=== PATIENT | male | born 1950 | race Caucasian/White ===

== ENCOUNTER 2018-07-18 12:04 | Inpatient (IN) | payer MEDICARE ==
[~2018-07-18] VITALS: Ht 188 cm; Wt 53.0 kg
--- NOTE | 2018-07-18 12:20 | NUR ---
FSBS with [facility] = 517. Patient reports polyuria.
--- NOTE | 2018-07-18 12:20 | NUR ---
BIB [facility]. C/O SOB, N/V, and generalized weakness. Patient tachycardic (afib RVR) and tachypneic. BP stable. A&Ox4, but slow to answer questions. Hx type 2 DM and has not had insulin for 6 months. Drinks 1 pint per day, but has not had a drink for 3 days. EKG done. Second IV started and fluids hung. Placed on NIBP, pulse ox and phototypesetting equipment monitor. Will contiue to monitor.
[2018-07-18] MEDS ORDERED: SODIUM CHLORIDE 0.9% 1,000ML IVBOLUS ONE ×3 (12:30→13:00)
[2018-07-18 12:47] LABS: PH, VENOUS 7.056 pH (7.320-7.420)
[2018-07-18 12:53] LABS: ALANINE AMINOTRANSFERASE 18 U/L (12-78); ALBUMIN 3.7 g/dL (3.4-5.0); ANION GAP 32 mmol/L (5-15); CALCIUM 9.3 mg/dL (8.5-10.1); CHLORIDE 90 mmol/L (98-107); CREATININE 1.82 mg/dL (0.7-1.3)
[2018-07-18 12:55] LABS: ALKALINE PHOSPHATASE 119 U/L (45-117); BILIRUBIN,TOTAL 0.7 mg/dL (0.2-1.0); TOTAL PROTEIN 8.4 g/dL (6.4-8.2)
[2018-07-18 12:56] LABS: MEAN CORPUSCULAR HGB CONC 31.5 g/dL (33.2-36.2); MEAN CORPUSCULAR VOLUME 95.2 fL (81-97); MEAN PLATELET VOLUME 8.4 fL (7.4-10.4); PLATELET COUNT 259 x10^3/uL (130-400); RED BLOOD COUNT 6.19 x10^6/uL (4.38-5.82); RED CELL DISTRIBUTION WIDTH 14.2 % (9.4-14.8)
--- NOTE | 2018-07-18 12:57 | NUR ---
Patient remains in Afib with RVR and is becoming hypotensive despite fluid resuscitation. Placed on defib pads and zoll for potential cardioversion.
[2018-07-18] MEDS ORDERED: DILTIAZEM 5 MG/ML, 5ML ONE (13:04)
--- NOTE | 2018-07-18 13:09 | NUR ---
HR improved after 10mg IV cardizem. BP stable.
[2018-07-18 13:19] LABS: MD YES
[2018-07-18 13:22] LABS: ACETONE, SERUM Large (80mg/dL) mg/dL (Negative)
[2018-07-18 13:26] LABS: BAND#(MANUAL) 0.72 x10^3/uL; BANDS%(MANUAL) 10 % (0-7); LYMPH#(MANUAL) 0.36 x10^3/uL (1-3.4); LYMPHS% (MANUAL) 5 % (22-44); MONOS#(MANUAL) 0.65 x10^3/uL (0.3-2.7); MONOS% (MANUAL) 9 % (2-9); SEG#(MANUAL) 5.47 x10^3/uL (1.8-6.8); SEGS% (MANUAL) 76 % (42-75)
--- NOTE | 2018-07-18 13:26 | NUR ---
RECEIVED REPORT FROM BEENA OCONNELL
[2018-07-18 13:27] LABS: <PLATELET ESTIMATE> ADEQUATE; <PLT MORPHOLOGY> NORMAL PLT MORPH
[2018-07-18] MEDS ORDERED: DILTIAZEM 5 MG/ML, 5ML IVPush ONE (13:30)
[2018-07-18] MEDS ORDERED: DILTIAZEM 125 MG in SODIUM CHLORIDE 0.9% 100 ML IV SCH (13:40)
[2018-07-18] MEDS ORDERED: REGULAR INSULIN 62.5 UNITS in SODIUM CHLORIDE 0.9% 249.375 ML IV PRN ×2 (13:44→15:00)
--- NOTE | 2018-07-18 14:09 | NUR ---
2nd ekg done. cardizem gtt infusing.
[2018-07-18] MEDS ORDERED: ACETAMINOPHEN 325 MG TABLET PO PRN (14:30)
[2018-07-18] MEDS ORDERED: POLYETHYLENE GLYCOL 17 GM PACKET PO PRN (14:30)
[2018-07-18] MEDS ORDERED: ENALAPRILAT 1.25 MG/ML, 2ML IVPush PRN (14:30)
[2018-07-18] MEDS ORDERED: DILTIAZEM 125 MG in SODIUM CHLORIDE 0.9% 100 ML IV PRN (14:30)
[2018-07-18] MEDS ORDERED: LABETALOL 5MG/ML, 20ML IVPush PRN (14:30)
[2018-07-18] MEDS ORDERED: PROMETHAZINE 25 MG/ML, 1ML IM PRN (14:30)
[2018-07-18] MEDS ORDERED: OXYcodone IR 5MG TABLET PO PRN (14:30)
[2018-07-18] MEDS ORDERED: ONDANSETRON 2MG/ML, 2ML IVPush PRN (14:30)
--- NOTE | 2018-07-18 14:30 | NUR ---
pt with n/v and started vomitting. dr. mercado at bedside and reported heart rate up to 150. pt back down to 108 after about 7 minutes. pt currently on cardizem gtt. pt with st depression on monitor. 3rd ekg ordered per dr. mercado.
--- NOTE | 2018-07-18 14:52 | NUR ---
BLOOD GLUCOSE 325. DR. DEVI AWARE AND INSULIN STARTED AT 2 UNITS/HR 8ML/HR
--- NOTE | 2018-07-18 14:54 | NUR ---
LAB AT BEDSIDE FOR TROPONIN DRAW. RECEIVED BED AND WILL CALL REPORT
[2018-07-18] MEDS ORDERED: MAGNESIUM SULFATE PMX 2GM/50ML 50 ML IV ONE (15:00)
--- NOTE | 2018-07-18 15:10 | NUR ---
report given to mukesh genao [facility]. pt ready for transport.
[2018-07-18 15:11] LABS: ANION GAP 26 mmol/L (5-15); CALCIUM 8.1 mg/dL (8.5-10.1); CHLORIDE 103 mmol/L (98-107); CREATININE 1.39 mg/dL (0.7-1.3)
[2018-07-18 15:15] LABS: TROPONIN I < 0.015 ng/mL (0.000-0.045)
[2018-07-18] MEDS: SODIUM CHLORIDE 0.9% 1,000 ML IV SCH ×2 (16:11→20:51)
[2018-07-18 16:21] LABS: ESTIMATED AVERAGE GLUCOSE 413 mg/dL (0-126); HEMOGLOBIN A1C > 16.0 % (4.2-6.3)
[2018-07-18] MEDS: ENOXAPARIN 80 MG/0.8 ML SQ SCH (17:20)
[2018-07-18 18:21] LABS: MICROSCOPIC AUTO
[2018-07-18 18:22] LABS: CULTURE INDICATED? NO
[2018-07-18 20:52] LABS: ANION GAP 20 mmol/L (5-15); CALCIUM 8.4 mg/dL (8.5-10.1); CHLORIDE 108 mmol/L (98-107); CREATININE 1.21 mg/dL (0.7-1.3); TROPONIN I < 0.015 ng/mL (0.000-0.045)
[2018-07-18] MEDS: D5%-0.45NACL+KCL 20MEQ 1,000 ML IV SCH (20:57)
[2018-07-18] MEDS ORDERED: LACTULOSE 10 GM/15 ML UDC PO SCH (21:00)
[2018-07-18 23:48] LABS: ANION GAP 15 mmol/L (5-15); CALCIUM 8.1 mg/dL (8.5-10.1); CHLORIDE 111 mmol/L (98-107); CREATININE 1.07 mg/dL (0.7-1.3)
[2018-07-19 03:12] LABS: BASOPHILS # (AUTO) 0.03 x10^3/uL (0-0.1); BASOPHILS % (AUTO) 1 % (0-1); EOSINOPHILS # (AUTO) 0.03 x10^3/uL (0-0.4); EOSINOPHILS % (AUTO) 0 % (1-7); LYMPHOCYTES # (AUTO) 0.76 x10^3/uL (1-3.4); LYMPHOCYTES % (AUTO) 12 % (22-44); MD NO; MEAN CORPUSCULAR HEMOGLOBIN 30.4 pg (27.5-34.5); MEAN CORPUSCULAR HGB CONC 32.1 g/dL (33.2-36.2); MEAN CORPUSCULAR VOLUME 94.7 fL (81-97); MONOCYTES # (AUTO) 0.87 x10^3/uL (0.2-0.8); MONOCYTES % (AUTO) 14 % (2-9); NEUTROPHILS # (AUTO) 4.47 x10^3/uL (1.8-6.8); NEUTROPHILS % (AUTO) 73 % (42-75); PLATELET COUNT 224 x10^3/uL (130-400); RED CELL DISTRIBUTION WIDTH 13.9 % (9.4-14.8)
[2018-07-19 03:22] LABS: ANION GAP 10 mmol/L (5-15); CALCIUM 8.1 mg/dL (8.5-10.1); CHLORIDE 112 mmol/L (98-107)
[2018-07-19 03:23] LABS: CREATININE 1.05 mg/dL (0.7-1.3)
[2018-07-19] MEDS: SODIUM CHLORIDE 0.9% 1,000 ML IV SCH ×3 (03:31→21:40)
[2018-07-19] MEDS: D5%-0.45NACL+KCL 20MEQ 1,000 ML IV SCH (04:02)
[2018-07-19] MEDS: ENOXAPARIN 80 MG/0.8 ML SQ SCH (04:05)
[2018-07-19 04:24] VITALS: BP 112/77
[2018-07-19 07:02] LABS: ALBUMIN 2.7 g/dL (3.4-5.0); ANION GAP 9 mmol/L (5-15); CALCIUM 8.2 mg/dL (8.5-10.1); CHLORIDE 112 mmol/L (98-107)
[2018-07-19 07:11] LABS: ALANINE AMINOTRANSFERASE 13 U/L (12-78); ALKALINE PHOSPHATASE 81 U/L (45-117); BILIRUBIN,TOTAL 0.3 mg/dL (0.2-1.0); CHOL/HDL RATIO 5.2; CHOLESTEROL, TOTAL 194 mg/dL (140-239); CREATININE 1.03 mg/dL (0.7-1.3); HDL CHOL % 19 % (26-37); HDL CHOLESTEROL (DIRECT) 37 mg/dL (40-60); LDL CHOLESTEROL,CALCULATED 138 mg/dL (54-169); LDL/HDL RATIO 3.7 (0.5-3.0); THYROID STIMULATING HORMONE 0.381 mIU/L (0.358-3.740); TRIGLYCERIDES 95 mg/dL (50-200); VLDL CHOLESTEROL 19 mg/dL (0-25)
[2018-07-19] MEDS: ENOXAPARIN 40 MG/0.4 ML SQ SCH (07:11)
[2018-07-19] MEDS ORDERED: PANTOPRAZOLE 40 MG IV IVPush SCH (07:30)
[2018-07-19] MEDS ORDERED: POTASSIUM CHLORIDE 20 MEQ TAB.ER.PRT PO ONE (09:30)
[2018-07-19] MEDS ORDERED: SODIUM PHOSPHATE 20 MMOL in SODIUM CHLORIDE 0.9% 500 ML IV ONE (09:30)
[2018-07-19] MEDS: INSULIN GLARGINE 100 UNITS/ML, PEN SQ-INSULIN SCH ×2 (09:42→21:40)
[2018-07-19] MEDS: THIAMINE 200 MG in SODIUM CHLORIDE 0.9% 50 ML IV SCH (09:56)
[2018-07-19] MEDS ORDERED: INSULIN LISPRO 100 UNITS/ML, PEN SQ-INSULIN SCH (11:00)
[2018-07-19] MEDS: INSULIN LISPRO 100 UNITS/ML, PEN SQ-INSULIN SCH ×3 (12:17→21:39)
[2018-07-19 14:00] VITALS: BP 116/81
[2018-07-19 19:36] VITALS: BP 100/70
[2018-07-20 02:36] VITALS: BP 113/80
[2018-07-20 04:18] LABS: ANION GAP 6 mmol/L (5-15); CHLORIDE 108 mmol/L (98-107); CREATININE 0.53 mg/dL (0.7-1.3)
[2018-07-20] MEDS ORDERED: SODIUM PHOSPHATE 20 MMOL in SODIUM CHLORIDE 0.9% 500 ML IV ONE (07:30)
[2018-07-20] MEDS: INSULIN LISPRO 100 UNITS/ML, PEN SQ-INSULIN SCH ×4 (08:08→22:10)
[2018-07-20] MEDS: POTASSIUM CHLORIDE 20 MEQ TAB.ER.PRT PO SCH ×2 (08:32→15:25)
[2018-07-20] MEDS: INSULIN GLARGINE 100 UNITS/ML, PEN SQ-INSULIN SCH ×2 (08:33→22:09)
[2018-07-20 08:39] VITALS: BP 131/88
[2018-07-20] MEDS: THIAMINE 200 MG in SODIUM CHLORIDE 0.9% 50 ML IV SCH (09:08)
[2018-07-20] MEDS: ENOXAPARIN 40 MG/0.4 ML SQ SCH (11:37)
[2018-07-20 14:00] VITALS: BP 110/73
[2018-07-20] MEDS: SODIUM CHLORIDE 0.9% 1,000 ML IV SCH (15:16)
[2018-07-20 19:29] VITALS: BP 143/88
[2018-07-21] MEDS: SODIUM CHLORIDE 0.9% 1,000 ML IV SCH (00:54)
[2018-07-21 02:34] VITALS: BP 124/77
[2018-07-21 06:00] LABS: ANION GAP 5 mmol/L (5-15); CALCIUM 8.2 mg/dL (8.5-10.1); CHLORIDE 101 mmol/L (98-107); CREATININE 0.49 mg/dL (0.7-1.3)
[2018-07-21] MEDS ORDERED: SODIUM PHOSPHATE 20 MMOL in SODIUM CHLORIDE 0.9% 500 ML IV ONE (06:30)
[2018-07-21] MEDS: INSULIN LISPRO 100 UNITS/ML, PEN SQ-INSULIN SCH ×4 (07:00→21:44)
[2018-07-21 08:00] VITALS: BP 119/70
[2018-07-21] MEDS: ENOXAPARIN 40 MG/0.4 ML SQ SCH (09:00)
[2018-07-21] MEDS: POTASSIUM CHLORIDE 20 MEQ TAB.ER.PRT PO SCH (09:00)
[2018-07-21] MEDS: INSULIN GLARGINE 100 UNITS/ML, PEN SQ-INSULIN SCH ×2 (09:00→21:43)
[2018-07-21 12:58] VITALS: BP 123/74
[2018-07-21 19:53] VITALS: BP 163/77
[2018-07-22 01:52] VITALS: BP 137/79
[2018-07-22 05:25] LABS: CHLORIDE 100 mmol/L (98-107)
[2018-07-22 05:37] LABS: ANION GAP 6 mmol/L (5-15); CALCIUM 8.5 mg/dL (8.5-10.1)
[2018-07-22 07:06] VITALS: BP 128/74
[2018-07-22] MEDS: INSULIN LISPRO 100 UNITS/ML, PEN SQ-INSULIN SCH ×4 (07:29→20:55)
[2018-07-22] MEDS: ENOXAPARIN 40 MG/0.4 ML SQ SCH (08:02)
[2018-07-22] MEDS: MULTIVITAMIN 1 TABLET PO SCH (08:02)
[2018-07-22] MEDS: INSULIN GLARGINE 100 UNITS/ML, PEN SQ-INSULIN SCH ×2 (08:03→20:55)
[2018-07-22] MEDS: POTASSIUM CHLORIDE 20 MEQ TAB.ER.PRT PO SCH ×2 (08:03→18:03)
[2018-07-22] MEDS ORDERED: SODIUM PHOSPHATE 20 MMOL in SODIUM CHLORIDE 0.9% 500 ML IV ONE (09:00)
[2018-07-22 12:17] VITALS: BP 119/69
[2018-07-22 20:10] VITALS: BP 93/58
[2018-07-23 01:28] VITALS: BP 128/82
[2018-07-23] MEDS: INSULIN LISPRO 100 UNITS/ML, PEN SQ-INSULIN SCH ×4 (07:00→20:09)
[2018-07-23 08:20] VITALS: BP 135/86
[2018-07-23] MEDS: ENOXAPARIN 40 MG/0.4 ML SQ SCH (08:33)
[2018-07-23] MEDS: MULTIVITAMIN 1 TABLET PO SCH (08:33)
[2018-07-23] MEDS: INSULIN GLARGINE 100 UNITS/ML, PEN SQ-INSULIN SCH ×2 (09:46→20:09)
[2018-07-23 15:06] VITALS: BP 91/62
[2018-07-23 19:35] VITALS: BP 87/63
[2018-07-23 22:19] VITALS: BP 101/68
[2018-07-24 00:49] VITALS: BP 115/73
[2018-07-24 06:33] VITALS: BP 124/84
[2018-07-24] MEDS: INSULIN LISPRO 100 UNITS/ML, PEN SQ-INSULIN SCH ×4 (07:00→20:19)
[2018-07-24 09:15] LABS: BASOPHILS # (AUTO) 0.03 x10^3/uL (0-0.1); BASOPHILS % (AUTO) 1 % (0-1); EOSINOPHILS # (AUTO) 0.05 x10^3/uL (0-0.4); EOSINOPHILS % (AUTO) 1 % (1-7); LYMPHOCYTES # (AUTO) 1.36 x10^3/uL (1-3.4); LYMPHOCYTES % (AUTO) 26 % (22-44); MD NO; MEAN CORPUSCULAR HEMOGLOBIN 30.6 pg (27.5-34.5); MEAN CORPUSCULAR HGB CONC 32.8 g/dL (33.2-36.2); MEAN CORPUSCULAR VOLUME 93.5 fL (81-97); MEAN PLATELET VOLUME 7.2 fL (7.4-10.4); MONOCYTES % (AUTO) 15 % (2-9); NEUTROPHILS # (AUTO) 3.09 x10^3/uL (1.8-6.8); NEUTROPHILS % (AUTO) 58 % (42-75); PLATELET COUNT 371 x10^3/uL (130-400); RED BLOOD COUNT 5.03 x10^6/uL (4.38-5.82); RED CELL DISTRIBUTION WIDTH 14.4 % (9.4-14.8)
[2018-07-24 09:18] LABS: ANION GAP 3 mmol/L (5-15); CALCIUM 8.9 mg/dL (8.5-10.1); CHLORIDE 102 mmol/L (98-107); CREATININE 0.52 mg/dL (0.7-1.3)
[2018-07-24 09:19] LABS: ALANINE AMINOTRANSFERASE 12 U/L (12-78)
[2018-07-24 09:21] LABS: ALKALINE PHOSPHATASE 69 U/L (45-117); BILIRUBIN,TOTAL 0.3 mg/dL (0.2-1.0); TOTAL PROTEIN 5.7 g/dL (6.4-8.2)
[2018-07-24] MEDS: MULTIVITAMIN 1 TABLET PO SCH (09:34)
[2018-07-24] MEDS: ENOXAPARIN 40 MG/0.4 ML SQ SCH (09:34)
[2018-07-24] MEDS: INSULIN GLARGINE 100 UNITS/ML, PEN SQ-INSULIN SCH ×2 (09:34→20:18)
[2018-07-24 12:19] VITALS: BP 146/92
[2018-07-24 13:59] VITALS: BP 101/64
[2018-07-24 19:49] VITALS: BP 120/72
[2018-07-24] MEDS: THIAMINE 100MG TABLET PO SCH (20:18)
[2018-07-25 02:48] VITALS: BP 120/75
[2018-07-25 06:59] VITALS: BP 116/75
[2018-07-25] MEDS: MULTIVITAMIN 1 TABLET PO SCH (07:47)
[2018-07-25] MEDS: INSULIN LISPRO 100 UNITS/ML, PEN SQ-INSULIN SCH ×4 (07:47→20:11)
[2018-07-25] MEDS: FOLIC ACID 1 MG TABLET PO SCH (07:47)
[2018-07-25] MEDS: THIAMINE 100MG TABLET PO SCH ×2 (07:47→20:10)
[2018-07-25] MEDS: ENOXAPARIN 40 MG/0.4 ML SQ SCH (07:48)
[2018-07-25] MEDS: INSULIN GLARGINE 100 UNITS/ML, PEN SQ-INSULIN SCH ×2 (07:50→20:10)
[2018-07-25 13:26] VITALS: BP 100/65
[2018-07-25 20:00] VITALS: BP 115/71
[2018-07-26 01:06] VITALS: BP 133/73
[2018-07-26 06:25] VITALS: BP 111/67
[2018-07-26 06:27] VITALS: BP 140/83
[2018-07-26] MEDS: INSULIN LISPRO 100 UNITS/ML, PEN SQ-INSULIN SCH ×4 (07:00→19:59)
[2018-07-26] MEDS: MULTIVITAMIN 1 TABLET PO SCH (08:18)
[2018-07-26] MEDS: THIAMINE 100MG TABLET PO SCH ×2 (08:18→19:58)
[2018-07-26] MEDS: FOLIC ACID 1 MG TABLET PO SCH (08:18)
[2018-07-26] MEDS: ENOXAPARIN 40 MG/0.4 ML SQ SCH (08:18)
[2018-07-26] MEDS: INSULIN GLARGINE 100 UNITS/ML, PEN SQ-INSULIN SCH ×2 (08:21→19:58)
[2018-07-26 12:30] VITALS: BP 102/62
[2018-07-26 21:02] VITALS: BP 112/63
[2018-07-27 01:41] VITALS: BP 127/76
[2018-07-27 05:55] LABS: MEAN CORPUSCULAR HEMOGLOBIN 30.9 pg (27.5-34.5); MEAN CORPUSCULAR HGB CONC 32.6 g/dL (33.2-36.2); MEAN CORPUSCULAR VOLUME 94.7 fL (81-97); MEAN PLATELET VOLUME 7.1 fL (7.4-10.4); PLATELET COUNT 470 x10^3/uL (130-400); RED BLOOD COUNT 4.49 x10^6/uL (4.38-5.82); RED CELL DISTRIBUTION WIDTH 13.9 % (9.4-14.8)
[2018-07-27 06:02] LABS: ANION GAP 3 mmol/L (5-15); CALCIUM 8.8 mg/dL (8.5-10.1); CHLORIDE 100 mmol/L (98-107); CREATININE 0.58 mg/dL (0.7-1.3)
[2018-07-27 06:16] LABS: BASOPHILS # (AUTO) 0.04 x10^3/uL (0-0.1); BASOPHILS % (AUTO) 1 % (0-1); EOSINOPHILS # (AUTO) 0.04 x10^3/uL (0-0.4); EOSINOPHILS % (AUTO) 1 % (1-7); LYMPHOCYTES # (AUTO) 1.26 x10^3/uL (1-3.4); LYMPHOCYTES % (AUTO) 17 % (22-44); MD SCAN; MONOCYTES # (AUTO) 1.46 x10^3/uL (0.2-0.8); MONOCYTES % (AUTO) 19 % (2-9); NEUTROPHILS # (AUTO) 4.79 x10^3/uL (1.8-6.8); NEUTROPHILS % (AUTO) 63 % (42-75)
[2018-07-27 07:55] VITALS: BP 121/78
[2018-07-27] MEDS: INSULIN LISPRO 100 UNITS/ML, PEN SQ-INSULIN SCH ×2 (08:05→12:42)
[2018-07-27] MEDS: MULTIVITAMIN 1 TABLET PO SCH (09:31)
[2018-07-27] MEDS: THIAMINE 100MG TABLET PO SCH (09:31)
[2018-07-27] MEDS: ENOXAPARIN 40 MG/0.4 ML SQ SCH (09:31)
[2018-07-27] MEDS: FOLIC ACID 1 MG TABLET PO SCH (09:31)
[2018-07-27] MEDS: INSULIN GLARGINE 100 UNITS/ML, PEN SQ-INSULIN SCH (09:32)
[2018-07-27 12:26] VITALS: BP 102/64
[2018-07-27] MEDS ORDERED: INSU100I13 SQ-INSULIN ×2 (12:58)
[2018-07-27] MEDS ORDERED: FOLI-17 PO (12:58)
[2018-07-27] MEDS ORDERED: MULT1TAB60 PO (12:58)
[2018-07-27] MEDS ORDERED: THIA100T67 PO (12:58)
== END 2018-07-27 15:27 | disposition home or self-care (01) | DRG 637 ==
LOC: ED 14:24 → CCU 15:54 → ICU 07-19 14:19 → 4EST 07-20 16:00 → DCLOUNGE 07-27 15:25
PROVIDERS: ADMIT Internal Medicine; ATTEND Internal Medicine
DX: E11.10 Type 2 diabetes mellitus with ketoacidosis without coma (principal); N17.0 Acute kidney failure with tubular necrosis; D68.69 Other thrombophilia; E46 Unspecified protein-calorie malnutrition; Z68.1 Body mass index [BMI] 19.9 or less, adult; G93.40 Encephalopathy, unspecified; E86.0 Dehydration; F10.20 Alcohol dependence, uncomplicated; F17.210 Nicotine dependence, cigarettes, uncomplicated; G31.84 Mild cognitive impairment of uncertain or unknown etiology; H91.90 Unspecified hearing loss, unspecified ear; I45.81 Long QT syndrome; I48.2 Chronic atrial fibrillation; Z59.0 Homelessness; Z79.4 Long term (current) use of insulin; Z91.14 Patient's other noncompliance with medication regimen; Z91.19 Patient's noncompliance with other medical treatment and regimen
CPT/HCPCS: 36415; 71045; 80048; 80053; 80061; 81001; 82010; 82803; 82947; 82962; 83036; 83605; 83735; 84100; 84145; 84443; 84484; 85025; 87081; 93005; 93306; 96361; 96365; 96368; G0378; J1650; J1815; J3411; 92523-GN; G0515-GN; J3475; J3480; J7030; J7040; J7050

== ENCOUNTER 2018-08-06 09:29 | Inpatient (IN) | payer MEDICARE ==
[~2018-08-06] VITALS: Ht 177.8 cm; Wt 74.5 kg
[~2018-08-06 09:29] MED LIST: FOLI-17 PO; INSU100I13 SQ-INSULIN; MULT1TAB60 PO; THIA100T67 PO
--- NOTE | 2018-08-06 09:41 | NUR ---
Pt brought in by EMS with c/o hyperglycemia and "fatigue". FS in the field was 418. Pt very EKWOK, but AAO X 4. Pt tachycardic and and tachypnic. Pt attached to monitor. MD to bedside, new orders received and implemented.
[2018-08-06] MEDS ORDERED: SODIUM CHLORIDE 0.9% 1,000ML IVBOLUS ONE ×3 (10:00→23:30)
--- NOTE | 2018-08-06 10:00 | NUR ---
NS FROM EMS FINISHED, 2ND L NS SCANNED AND HUNG.
[2018-08-06 10:13] LABS: PH, VENOUS 7.312 pH (7.320-7.420)
[2018-08-06 10:15] LABS: FIO2 RA %
[2018-08-06 10:20] LABS: MEAN CORPUSCULAR HEMOGLOBIN 29.9 pg (27.5-34.5); MEAN CORPUSCULAR HGB CONC 32.4 g/dL (33.2-36.2); MEAN CORPUSCULAR VOLUME 92.4 fL (81-97); MEAN PLATELET VOLUME 7.4 fL (7.4-10.4); PLATELET COUNT 326 x10^3/uL (130-400); RED BLOOD COUNT 4.43 x10^6/uL (4.38-5.82); RED CELL DISTRIBUTION WIDTH 14.3 % (9.4-14.8)
[2018-08-06 10:27] LABS: ALBUMIN 2.2 g/dL (3.4-5.0); ANION GAP 16 mmol/L (5-15); CALCIUM 8.4 mg/dL (8.5-10.1); CHLORIDE 93 mmol/L (98-107)
[2018-08-06 10:30] LABS: ALANINE AMINOTRANSFERASE 14 U/L (12-78); ALKALINE PHOSPHATASE 70 U/L (45-117); BILIRUBIN,TOTAL 0.7 mg/dL (0.2-1.0); CREATININE 0.94 mg/dL (0.7-1.3); TOTAL PROTEIN 5.9 g/dL (6.4-8.2)
[2018-08-06] MEDS ORDERED: SODIUM CHLORIDE 0.9% 1,000 ML IV ONE (10:53)
[2018-08-06 10:57] LABS: MD YES
[2018-08-06 10:59] LABS: BAND#(MANUAL) 2.47 x10^3/uL; BANDS%(MANUAL) 18 % (0-7); LYMPH#(MANUAL) 0.27 x10^3/uL (1-3.4); LYMPHS% (MANUAL) 2 % (22-44); MONOS#(MANUAL) 0.96 x10^3/uL (0.3-2.7); MONOS% (MANUAL) 7 % (2-9); MYELOCYTES# (MANUAL) 0.14 x10^3/uL (0-0); MYELOCYTES% (MANUAL) 1 % (0-0); SEG#(MANUAL) 9.86 x10^3/uL (1.8-6.8); SEGS% (MANUAL) 72 % (42-75)
[2018-08-06 11:00] LABS: <PLATELET ESTIMATE> ADEQUATE; <PLT MORPHOLOGY> NORMAL PLT MORPH; <RBC MORPHOLOGY> NORMAL
[2018-08-06] MEDS ORDERED: INSULIN REGULAR 100 UNITS/ML, 3ML VIAL SQ-INSULIN ONE (11:00)
[2018-08-06 11:02] LABS: MICROSCOPIC AUTO
[2018-08-06 11:03] LABS: CULTURE INDICATED? NO
[2018-08-06 11:03] LABS: ACETONE, SERUM Large (80mg/dL) mg/dL (Negative)
[2018-08-06] MEDS ORDERED: INSULIN LISPRO 100 UNITS/ML, PEN ONE (11:04)
[2018-08-06 11:06] LABS: SODIUM,URINE RANDOM 37 mmol/L
--- NOTE | 2018-08-06 11:08 | NUR ---
PT GIVEN 10 UNITS SQ INSULIN PER MD ORDER, SEE MAR. PT RESTING COMFORTABLY ON GURNEY, ALL NEEDS ADDRESSED AND FALL PRECAUTIONS IN PLACE.
--- NOTE | 2018-08-06 11:38 | NUR ---
FS RECHECK 306.
[2018-08-06 11:54] LABS: OSMOLALITY,URINE 642 mOsm/kg (500-850)
[2018-08-06] MEDS ORDERED: PIPERACILLIN/TAZO/PMX 3.375GM 50 ML IV ONE (12:00)
--- NOTE | 2018-08-06 12:08 | NUR ---
DISCUSSED PT CONDITION WITH MD. BLOOD CULTURES X 2 DRAWN, LACTIC ACID NEGATIVE, VSS EXCEPT HR, FOLLOW UP EKG ORDERED. LAB AT BEDSIDE TO DRAW BLOOD CULTURES. US AT BEDSIDE FOR EXAM. ANX TO BE ADMINISTERED WHEN BLOOD CULTURE SETS X 2 COMPLETED.
--- NOTE | 2018-08-06 12:18 | NUR ---
ONE SET OF BC COMPLETED.
[2018-08-06] MEDS ORDERED: POTASSIUM CHLORIDE 20 MEQ in LACTATED RINGERS 1,000 ML IV SCH (12:21)
[2018-08-06] MEDS ORDERED: HEPARIN 5,000 UNITS/ML, 1ML SQ SCH (12:30)
[2018-08-06] MEDS ORDERED: hydrALAzine 20 MG/ML, 1ML IVPush PRN (12:30)
[2018-08-06] MEDS ORDERED: LABETALOL 5MG/ML, 20ML IVPush PRN (12:30)
[2018-08-06] MEDS ORDERED: ONDANSETRON ODT 4 MG PO PRN (12:30)
[2018-08-06] MEDS ORDERED: PROMETHAZINE 25 MG/ML, 1ML IM PRN (12:30)
[2018-08-06] MEDS ORDERED: ONDANSETRON 2MG/ML, 2ML IVPush PRN (12:30)
--- NOTE | 2018-08-06 12:40 | NUR ---
REPORT GIVEN TO CAMRYN OCONNELL. THIS RN TO ADMINISTER ABX BEFORE TRANSFER.
[2018-08-06] MEDS ORDERED: PIPERACILLIN/TAZO/PMX 3.375GM 50 ML ONE (12:42)
--- NOTE | 2018-08-06 12:56 | NUR ---
Pt transported on gurney to floor and left with all personal belongings.
[2018-08-06] MEDS ORDERED: APIXABAN 5 MG TABLET PO SCH (13:12)
[2018-08-06 13:26] VITALS: BP 131/82
[2018-08-06] MEDS ORDERED: METOPROLOL TARTRATE 25 MG TABLET PO ONE (13:30)
[2018-08-06] MEDS: SODIUM CHLORIDE 0.9% 1,000 ML IV SCH ×3 (13:37→20:49)
[2018-08-06] MEDS ORDERED: VANCOMYCIN PER PHARMACY MC PRN (14:00)
[2018-08-06] MEDS ORDERED: DILTIAZEM 125 MG in SODIUM CHLORIDE 0.9% 100 ML IV SCH ×2 (14:00→16:00)
[2018-08-06] MEDS ORDERED: PHARMACOKINETIC MONITORING MC PRN (14:30)
[2018-08-06] MEDS ORDERED: PHARMACOKINETIC CONSULTATION MC ONE (14:30)
[2018-08-06] MEDS: NICOTINE 7 MG/24 HR PATCH.TD24 TD SCH (15:14)
[2018-08-06] MEDS: APIXABAN 5 MG TABLET PO SCH ×2 (15:15→21:44)
[2018-08-06] MEDS: INSULIN LISPRO 100 UNITS/ML, PEN SQ-INSULIN SCH ×2 (16:00→21:45)
[2018-08-06 16:21] LABS: ANION GAP 14 mmol/L (5-15); CALCIUM 8.3 mg/dL (8.5-10.1); CHLORIDE 97 mmol/L (98-107); CREATININE 0.83 mg/dL (0.7-1.3)
[2018-08-06 17:02] LABS: TROPONIN I 0.025 ng/mL (0.000-0.045)
[2018-08-06] MEDS ORDERED: METOPROLOL TARTRATE 25 MG TABLET PO SCH ×2 (18:00)
[2018-08-06] MEDS: INSULIN GLARGINE 100 UNITS/ML, PEN SQ-INSULIN SCH (18:01)
[2018-08-06] MEDS: METOPROLOL TARTRATE 25 MG TABLET PO SCH (18:02)
[2018-08-06 20:00] VITALS: BP 129/62
[2018-08-06 20:30] VITALS: BP 80/55
[2018-08-06 20:40] VITALS: BP 90/55
[2018-08-06] MEDS: THIAMINE 100MG TABLET PO SCH (21:44)
[2018-08-06] MEDS: VANCOMYCIN 1,200 MG in SODIUM CHLORIDE 0.9% 250 ML IV SCH (21:44)
[2018-08-06 21:54] VITALS: BP 101/65
[2018-08-06 23:00] VITALS: BP 73/38
[2018-08-06] MEDS: ACETAMINOPHEN 325 MG TABLET PO PRN (23:28)
[2018-08-06] MEDS ORDERED: ACETAMINOPHEN 325 MG TABLET PO PRN (23:30)
[2018-08-06] MEDS ORDERED: ALBUMIN HUMAN 25% 100 ML IV ONE (23:30)
[2018-08-07] LABS: TROPONIN I 0.052 ng/mL (0.000-0.045)
[2018-08-07 00:53] VITALS: BP 83/51
[2018-08-07] MEDS ORDERED: SODIUM CHLORIDE 0.9% 1,000ML IVBOLUS ONE (01:00)
[2018-08-07] MEDS: PIPERACILLIN/TAZO/PMX 3.375GM 50 ML IV SCH ×2 (01:10→09:23)
[2018-08-07 02:24] VITALS: BP 81/50
[2018-08-07 03:28] VITALS: BP 94/59
[2018-08-07] MEDS ORDERED: SODIUM CHLORIDE 0.9% 1,000 ML IV SCH (03:30)
[2018-08-07] MEDS ORDERED: ALBUMIN HUMAN 25% 100 ML IV ONE (03:30)
[2018-08-07] MEDS: SODIUM CHLORIDE 0.9% 1,000 ML IV SCH ×2 (03:31→09:24)
[2018-08-07 03:44] LABS: MEAN CORPUSCULAR HEMOGLOBIN 30.5 pg (27.5-34.5); MEAN CORPUSCULAR HGB CONC 32.6 g/dL (33.2-36.2); MEAN CORPUSCULAR VOLUME 93.5 fL (81-97); MEAN PLATELET VOLUME 7.4 fL (7.4-10.4); PLATELET COUNT 290 x10^3/uL (130-400); RED BLOOD COUNT 4.16 x10^6/uL (4.38-5.82); RED CELL DISTRIBUTION WIDTH 13.9 % (9.4-14.8)
[2018-08-07 03:54] LABS: ALANINE AMINOTRANSFERASE 11 U/L (12-78); ALBUMIN 1.5 g/dL (3.4-5.0); ANION GAP 9 mmol/L (5-15); CALCIUM 7.5 mg/dL (8.5-10.1); CHLORIDE 107 mmol/L (98-107); CREATININE 0.59 mg/dL (0.7-1.3)
[2018-08-07 03:56] LABS: ALKALINE PHOSPHATASE 48 U/L (45-117); BILIRUBIN,TOTAL 0.4 mg/dL (0.2-1.0); TOTAL PROTEIN 4.4 g/dL (6.4-8.2)
[2018-08-07 03:58] LABS: TROPONIN I 0.044 ng/mL (0.000-0.045)
[2018-08-07 04:01] LABS: MD YES
[2018-08-07 04:05] LABS: ANISOCYTOSIS 1+; BAND#(MANUAL) 0.09 x10^3/uL; BANDS%(MANUAL) 1 % (0-7); LYMPH#(MANUAL) 0.91 x10^3/uL (1-3.4); LYMPHS% (MANUAL) 10 % (22-44); MONOS#(MANUAL) 0.55 x10^3/uL (0.3-2.7); MONOS% (MANUAL) 6 % (2-9); SEG#(MANUAL) 7.55 x10^3/uL (1.8-6.8); SEGS% (MANUAL) 83 % (42-75)
[2018-08-07 04:06] LABS: <PLATELET ESTIMATE> ADEQUATE; ECHINOCYTES 1+; POLYCHROMASIA 1+
[2018-08-07 04:07] LABS: <PLT MORPHOLOGY> NORMAL PLT MORPH
[2018-08-07] MEDS: METOPROLOL TARTRATE 25 MG TABLET PO SCH (05:30)
[2018-08-07] MEDS: INSULIN LISPRO 100 UNITS/ML, PEN SQ-INSULIN SCH ×4 (07:00→21:00)
[2018-08-07] MEDS ORDERED: INSULIN GLARGINE 100 UNITS/ML, PEN SQ-INSULIN SCH (07:30)
[2018-08-07] MEDS ORDERED: GLUCAGON 1 MG IM PRN (08:00)
[2018-08-07] MEDS ORDERED: POTASSIUM CHLORIDE 40 MEQ in SODIUM CHLORIDE 0.9% 500 ML IV ONE (08:00)
[2018-08-07] MEDS ORDERED: DEXTROSE 4 GM TAB.CHEW PO PRN (08:00)
[2018-08-07] MEDS ORDERED: DEXTROSE 50%, 50ML SYRINGE IVPush PRN (08:00)
[2018-08-07 08:40] VITALS: BP 100/67
[2018-08-07] MEDS: POTASSIUM CHLORIDE 20 MEQ TAB.ER.PRT PO SCH ×2 (09:23→16:21)
[2018-08-07] MEDS: SODIUM CHLORIDE FLUSH 10ML SYR IVF SCH ×2 (09:23→21:00)
[2018-08-07] MEDS: APIXABAN 5 MG TABLET PO SCH ×2 (09:24→21:08)
[2018-08-07] MEDS: THIAMINE 100MG TABLET PO SCH ×2 (09:24→21:08)
[2018-08-07 11:31] LABS: ANION GAP 9 mmol/L (5-15); CALCIUM 7.5 mg/dL (8.5-10.1); CHLORIDE 108 mmol/L (98-107); CREATININE 0.54 mg/dL (0.7-1.3)
[2018-08-07 12:00] LABS: AMPHETAMINE SCREEN, URINE Negative (Negative); BARBITURATE SCREEN, URINE Negative (Negative); BENZODIAZEPINE SCREEN, URINE Negative (Negative); CANNABINOID SCREEN, URINE Negative (Negative); COCAINE SCREEN, URINE Negative (Negative); METHADONE SCREEN, URINE Negative (Negative); OPIATE SCREEN, URINE Negative (Negative)
[2018-08-07] MEDS ORDERED: DILTIAZEM 125 MG in SODIUM CHLORIDE 0.9% 100 ML IV SCH ×3 (14:00→16:00)
[2018-08-07 14:51] VITALS: BP 123/84
[2018-08-07] MEDS: NICOTINE 7 MG/24 HR PATCH.TD24 TD SCH (16:20)
[2018-08-07] MEDS: VANCOMYCIN 1,200 MG in SODIUM CHLORIDE 0.9% 250 ML IV SCH (16:20)
[2018-08-07] MEDS: INSULIN GLARGINE 100 UNITS/ML, PEN SQ-INSULIN SCH (16:21)
[2018-08-07] MEDS: METOPROLOL TARTRATE 100 MG TABLET PO SCH (16:22)
[2018-08-07 16:23] LABS: ANION GAP 9 mmol/L (5-15); CALCIUM 7.4 mg/dL (8.5-10.1); CHLORIDE 103 mmol/L (98-107); CREATININE 0.51 mg/dL (0.7-1.3)
[2018-08-07 19:21] VITALS: BP 86/46
[2018-08-07 21:57] LABS: ANION GAP 7 mmol/L (5-15); CALCIUM 7.3 mg/dL (8.5-10.1); CHLORIDE 104 mmol/L (98-107); CREATININE 0.46 mg/dL (0.7-1.3)
[2018-08-08 01:22] VITALS: BP 97/66
[2018-08-08] MEDS ORDERED: SODIUM CHLORIDE 0.9% 1,000 ML IV SCH (03:30)
[2018-08-08] MEDS: METOPROLOL TARTRATE 100 MG TABLET PO SCH ×2 (05:35→17:22)
[2018-08-08 05:53] LABS: ALBUMIN 1.5 g/dL (3.4-5.0); ANION GAP 7 mmol/L (5-15); CALCIUM 7.6 mg/dL (8.5-10.1); CHLORIDE 103 mmol/L (98-107)
[2018-08-08 05:57] LABS: ALANINE AMINOTRANSFERASE 14 U/L (12-78); ALKALINE PHOSPHATASE 55 U/L (45-117); BILIRUBIN,TOTAL 0.4 mg/dL (0.2-1.0); CREATININE 0.43 mg/dL (0.7-1.3); TOTAL PROTEIN 4.4 g/dL (6.4-8.2)
[2018-08-08 05:59] LABS: BASOPHILS # (AUTO) 0.02 x10^3/uL (0-0.1); BASOPHILS % (AUTO) 0 % (0-1); EOSINOPHILS # (AUTO) 0.03 x10^3/uL (0-0.4); EOSINOPHILS % (AUTO) 1 % (1-7); LYMPHOCYTES # (AUTO) 0.81 x10^3/uL (1-3.4); LYMPHOCYTES % (AUTO) 13 % (22-44); MD NO; MEAN CORPUSCULAR HEMOGLOBIN 30.7 pg (27.5-34.5); MEAN CORPUSCULAR HGB CONC 32.7 g/dL (33.2-36.2); MEAN CORPUSCULAR VOLUME 93.6 fL (81-97); MEAN PLATELET VOLUME 7.9 fL (7.4-10.4); MONOCYTES % (AUTO) 13 % (2-9); NEUTROPHILS % (AUTO) 74 % (42-75); PLATELET COUNT 289 x10^3/uL (130-400); RED BLOOD COUNT 4.06 x10^6/uL (4.38-5.82); RED CELL DISTRIBUTION WIDTH 14.4 % (9.4-14.8)
[2018-08-08 06:45] VITALS: BP 81/47
[2018-08-08] MEDS: INSULIN LISPRO 100 UNITS/ML, PEN SQ-INSULIN SCH ×4 (07:00→22:07)
[2018-08-08 08:03] VITALS: BP 86/58
[2018-08-08] MEDS: APIXABAN 5 MG TABLET PO SCH ×2 (08:05→21:34)
[2018-08-08] MEDS: THIAMINE 100MG TABLET PO SCH ×2 (08:05→21:34)
[2018-08-08] MEDS: POTASSIUM CHLORIDE 20 MEQ TAB.ER.PRT PO SCH ×2 (08:05→17:22)
[2018-08-08] MEDS: SODIUM CHLORIDE FLUSH 10ML SYR IVF SCH ×2 (08:07→21:00)
[2018-08-08] MEDS ORDERED: SODIUM CHLORIDE 0.9%, 500ML IVBOLUS ONE (08:30)
[2018-08-08 11:25] VITALS: BP 101/66
[2018-08-08] MEDS: VANCOMYCIN 1,200 MG in SODIUM CHLORIDE 0.9% 250 ML IV SCH (11:26)
[2018-08-08] MEDS: SODIUM CHLORIDE 0.9% 1,000 ML IV SCH ×2 (12:00→21:34)
[2018-08-08] MEDS ORDERED: ZOSYN PER PHARMACY MC PRN (12:00)
[2018-08-08] MEDS: PIPERACILLIN/TAZO/PMX 3.375GM 50 ML IV SCH ×2 (13:00→21:33)
[2018-08-08] MEDS: NICOTINE 7 MG/24 HR PATCH.TD24 TD SCH (15:00)
[2018-08-08] MEDS ORDERED: INSULIN GLARGINE 100 UNITS/ML, PEN SQ-INSULIN SCH (16:30)
[2018-08-08 17:00] VITALS: BP 136/66
[2018-08-08] MEDS ORDERED: MIDAZOLAM 1 MG/ML, 2ML ONE (18:31)
[2018-08-08] MEDS ORDERED: FENTANYL PF 100 MCG/2ML ONE ×2 (18:31→20:03)
[2018-08-08] MEDS ORDERED: DILTIAZEM 5 MG/ML, 5ML ONE (19:03)
[2018-08-08] MEDS ORDERED: PROPOFOL 10 MG/ML, 20ML ONE (19:08)
[2018-08-08] MEDS ORDERED: DEXAMETHASONE 4 MG/ML, 1ML ONE (19:08)
[2018-08-08] MEDS ORDERED: ONDANSETRON 2MG/ML, 2ML ONE (19:08)
[2018-08-08] MEDS ORDERED: CEFAZOLIN 1,000 MG ONE (19:08)
[2018-08-08] MEDS ORDERED: OXYcodone 5 MG/5 ML ORAL.SOL UDC ONE (19:55)
[2018-08-08] MEDS ORDERED: LABETALOL 5MG/ML, 20ML IV PRN (20:00)
[2018-08-08] MEDS ORDERED: OXYcodone 5 MG/5 ML ORAL.SOL UDC PO PRN (20:00)
[2018-08-08] MEDS ORDERED: ALBUTEROL SULFATE 2.5 MG/3 ML NPPB PRN (20:00)
[2018-08-08] MEDS ORDERED: hydrALAzine 20 MG/ML, 1ML IV PRN (20:00)
[2018-08-08] MEDS ORDERED: KETOROLAC 30 MG/1 ML IV PRN (20:00)
[2018-08-08] MEDS ORDERED: DIAZEPAM 5 MG/ML, 2ML IVPush PRN (20:00)
[2018-08-08] MEDS ORDERED: FENTANYL PF 100 MCG/2ML IV PRN (20:00)
[2018-08-08] MEDS ORDERED: ACETAMINOPHEN 325 MG TABLET PO PRN (20:00)
[2018-08-08] MEDS ORDERED: PROMETHAZINE 25 MG/ML, 1ML IV PRN (20:00)
[2018-08-08] MEDS ORDERED: MEPERIDINE/PF 25MG/0.5ML IVPush PRN (20:00)
[2018-08-08] MEDS ORDERED: HYDROmorphone 2 MG/ML, 1ML IVPush PRN (20:00)
[2018-08-08 20:41] VITALS: BP 103/66
[2018-08-08] MEDS: OXYcodone/APAP 5/325MG TABLET PO PRN (22:07)
[2018-08-09] VITALS (7 sets, daily range): BP systolic 86–112; BP diastolic 56–68
[2018-08-09] MEDS: OXYcodone/APAP 5/325MG TABLET PO PRN (02:36)
[2018-08-09] MEDS: PIPERACILLIN/TAZO/PMX 3.375GM 50 ML IV SCH ×2 (02:37→08:23)
[2018-08-09] MEDS ORDERED: SODIUM CHLORIDE 0.9% 1,000 ML IV SCH (03:30)
[2018-08-09] MEDS ORDERED: VANCOMYCIN 1,200 MG in SODIUM CHLORIDE 0.9% 250 ML IV SCH (05:00)
[2018-08-09] MEDS: SODIUM CHLORIDE 0.9% 1,000 ML IV SCH ×2 (05:17→15:14)
[2018-08-09 05:47] LABS: BASOPHILS # (AUTO) 0.03 x10^3/uL (0-0.1); BASOPHILS % (AUTO) 1 % (0-1); EOSINOPHILS # (AUTO) 0.04 x10^3/uL (0-0.4); EOSINOPHILS % (AUTO) 1 % (1-7); LYMPHOCYTES # (AUTO) 0.86 x10^3/uL (1-3.4); LYMPHOCYTES % (AUTO) 14 % (22-44); MD NO; MEAN CORPUSCULAR HEMOGLOBIN 29.6 pg (27.5-34.5); MEAN CORPUSCULAR HGB CONC 32.2 g/dL (33.2-36.2); MEAN PLATELET VOLUME 7.5 fL (7.4-10.4); MONOCYTES # (AUTO) 0.64 x10^3/uL (0.2-0.8); MONOCYTES % (AUTO) 11 % (2-9); NEUTROPHILS % (AUTO) 74 % (42-75); PLATELET COUNT 321 x10^3/uL (130-400); RED BLOOD COUNT 4.01 x10^6/uL (4.38-5.82); RED CELL DISTRIBUTION WIDTH 14.7 % (9.4-14.8)
[2018-08-09 06:08] LABS: ALANINE AMINOTRANSFERASE 10 U/L (12-78); ALBUMIN 1.4 g/dL (3.4-5.0); ANION GAP 6 mmol/L (5-15); CALCIUM 7.7 mg/dL (8.5-10.1); CHLORIDE 102 mmol/L (98-107); CREATININE 0.48 mg/dL (0.7-1.3)
[2018-08-09 06:10] LABS: ALKALINE PHOSPHATASE 57 U/L (45-117); BILIRUBIN,TOTAL 0.5 mg/dL (0.2-1.0); TOTAL PROTEIN 4.2 g/dL (6.4-8.2); VANCOMYCIN,TROUGH 5.5 mcg/mL (5.0-10.0)
[2018-08-09] MEDS: INSULIN LISPRO 100 UNITS/ML, PEN SQ-INSULIN SCH ×4 (07:00→21:30)
[2018-08-09] MEDS ORDERED: METOPROLOL TARTRATE 50 MG TABLET PO SCH ×2 (08:00)
[2018-08-09] MEDS: POTASSIUM CHLORIDE 20 MEQ TAB.ER.PRT PO SCH (08:17)
[2018-08-09] MEDS: THIAMINE 100MG TABLET PO SCH ×2 (08:17→21:28)
[2018-08-09] MEDS: APIXABAN 5 MG TABLET PO SCH ×2 (08:17→21:28)
[2018-08-09] MEDS: INSULIN GLARGINE 100 UNITS/ML, PEN SQ-INSULIN SCH ×2 (08:23→21:29)
[2018-08-09] MEDS: SODIUM CHLORIDE FLUSH 10ML SYR IVF SCH ×2 (08:23→21:28)
[2018-08-09] MEDS: SENNA/DOCUSATE TABLET PO SCH ×2 (15:14→21:28)
[2018-08-09] MEDS: NICOTINE 7 MG/24 HR PATCH.TD24 TD SCH (15:14)
[2018-08-09] MEDS: ACETAMINOPHEN 325 MG TABLET PO PRN ×2 (15:41→21:38)
[2018-08-09] MEDS ORDERED: VANCOMYCIN 1,600 MG in SODIUM CHLORIDE 0.9% 250 ML IV SCH (17:00)
[2018-08-09] MEDS: METOPROLOL TARTRATE 25 MG TABLET PO SCH (17:31)
[2018-08-10 01:04] VITALS: BP 119/80
[2018-08-10] MEDS: SODIUM CHLORIDE 0.9% 1,000 ML IV SCH (02:35)
[2018-08-10 06:06] LABS: ALBUMIN 1.4 g/dL (3.4-5.0); ANION GAP 4 mmol/L (5-15); CALCIUM 7.9 mg/dL (8.5-10.1); CHLORIDE 107 mmol/L (98-107)
[2018-08-10 06:10] LABS: ALANINE AMINOTRANSFERASE 14 U/L (12-78); ALKALINE PHOSPHATASE 62 U/L (45-117); BILIRUBIN,TOTAL 0.6 mg/dL (0.2-1.0); CREATININE 0.44 mg/dL (0.7-1.3); TOTAL PROTEIN 4.5 g/dL (6.4-8.2)
[2018-08-10 06:19] LABS: MEAN CORPUSCULAR HGB CONC 32.4 g/dL (33.2-36.2); MEAN CORPUSCULAR VOLUME 92.8 fL (81-97); MEAN PLATELET VOLUME 7.5 fL (7.4-10.4); PLATELET COUNT 397 x10^3/uL (130-400); RED BLOOD COUNT 4.48 x10^6/uL (4.38-5.82); RED CELL DISTRIBUTION WIDTH 14.4 % (9.4-14.8)
[2018-08-10] MEDS: METOPROLOL TARTRATE 25 MG TABLET PO SCH ×2 (06:29→17:36)
[2018-08-10 06:44] LABS: BASOPHILS # (AUTO) 0.02 x10^3/uL (0-0.1); BASOPHILS % (AUTO) 1 % (0-1); EOSINOPHILS % (AUTO) 2 % (1-7); LYMPHOCYTES # (AUTO) 1.07 x10^3/uL (1-3.4); LYMPHOCYTES % (AUTO) 22 % (22-44); MD NO; MONOCYTES # (AUTO) 0.61 x10^3/uL (0.2-0.8); MONOCYTES % (AUTO) 13 % (2-9); NEUTROPHILS # (AUTO) 3.04 x10^3/uL (1.8-6.8); NEUTROPHILS % (AUTO) 63 % (42-75)
[2018-08-10] MEDS: INSULIN LISPRO 100 UNITS/ML, PEN SQ-INSULIN SCH ×5 (07:00→21:30)
[2018-08-10 08:00] VITALS: BP 129/86
[2018-08-10] MEDS: FOLIC ACID 1 MG TABLET PO SCH (08:41)
[2018-08-10] MEDS: THIAMINE 100MG TABLET PO SCH ×2 (08:41→21:31)
[2018-08-10] MEDS: CEFAZOLIN 2,000 MG in SODIUM CHLORIDE 0.9% 50 ML IV SCH ×2 (08:41→16:11)
[2018-08-10] MEDS: SENNA/DOCUSATE TABLET PO SCH ×2 (08:41→21:31)
[2018-08-10] MEDS: POTASSIUM CHLORIDE 20 MEQ TAB.ER.PRT PO SCH (08:42)
[2018-08-10] MEDS: APIXABAN 5 MG TABLET PO SCH ×2 (08:42→21:31)
[2018-08-10] MEDS: SODIUM CHLORIDE FLUSH 10ML SYR IVF SCH ×2 (08:42→21:32)
[2018-08-10] MEDS ORDERED: CEFAZOLIN PMX 1GM/50ML 50 ML IV SCH (09:00)
[2018-08-10 14:50] VITALS: BP 115/81
[2018-08-10] MEDS: NICOTINE 7 MG/24 HR PATCH.TD24 TD SCH (16:11)
[2018-08-10 19:07] VITALS: BP 120/81
[2018-08-10] MEDS ORDERED: INSULIN GLARGINE 100 UNITS/ML, PEN SQ-INSULIN SCH ×2 (21:00)
[2018-08-11 00:24] VITALS: BP 145/91
[2018-08-11] MEDS: CEFAZOLIN 2,000 MG in SODIUM CHLORIDE 0.9% 50 ML IV SCH ×3 (01:18→17:08)
[2018-08-11 05:16] VITALS: BP 139/83
[2018-08-11] MEDS: METOPROLOL TARTRATE 25 MG TABLET PO SCH ×2 (05:24→17:11)
[2018-08-11 05:42] LABS: CHLORIDE 102 mmol/L (98-107)
[2018-08-11 05:50] LABS: BASOPHILS # (AUTO) 0.06 x10^3/uL (0-0.1); BASOPHILS % (AUTO) 1 % (0-1); EOSINOPHILS # (AUTO) 0.08 x10^3/uL (0-0.4); EOSINOPHILS % (AUTO) 1 % (1-7); LYMPHOCYTES # (AUTO) 1.23 x10^3/uL (1-3.4); LYMPHOCYTES % (AUTO) 22 % (22-44); MD NO; MEAN CORPUSCULAR HEMOGLOBIN 29.3 pg (27.5-34.5); MEAN CORPUSCULAR HGB CONC 31.9 g/dL (33.2-36.2); MEAN CORPUSCULAR VOLUME 91.7 fL (81-97); MEAN PLATELET VOLUME 7.2 fL (7.4-10.4); MONOCYTES # (AUTO) 0.66 x10^3/uL (0.2-0.8); MONOCYTES % (AUTO) 12 % (2-9); NEUTROPHILS # (AUTO) 3.71 x10^3/uL (1.8-6.8); NEUTROPHILS % (AUTO) 65 % (42-75); PLATELET COUNT 526 x10^3/uL (130-400); RED BLOOD COUNT 4.49 x10^6/uL (4.38-5.82); RED CELL DISTRIBUTION WIDTH 14.6 % (9.4-14.8)
[2018-08-11 05:55] LABS: ALANINE AMINOTRANSFERASE 11 U/L (12-78); ALBUMIN 1.4 g/dL (3.4-5.0); ALKALINE PHOSPHATASE 68 U/L (45-117); ANION GAP 4 mmol/L (5-15); BILIRUBIN,TOTAL 0.3 mg/dL (0.2-1.0); CALCIUM 7.8 mg/dL (8.5-10.1); TOTAL PROTEIN 4.8 g/dL (6.4-8.2)
[2018-08-11 06:07] LABS: HCT (SEDRATE) 41.2 % (39.2-51.8)
[2018-08-11 06:50] VITALS: BP 139/82
[2018-08-11] MEDS: SENNA/DOCUSATE TABLET PO SCH ×2 (09:02→21:14)
[2018-08-11] MEDS: SODIUM CHLORIDE FLUSH 10ML SYR IVF SCH ×2 (09:02→21:15)
[2018-08-11] MEDS: FOLIC ACID 1 MG TABLET PO SCH (09:02)
[2018-08-11] MEDS: APIXABAN 5 MG TABLET PO SCH ×2 (09:02→21:14)
[2018-08-11] MEDS: THIAMINE 100MG TABLET PO SCH ×2 (09:03→21:14)
[2018-08-11] MEDS: INSULIN LISPRO 100 UNITS/ML, PEN SQ-INSULIN SCH ×4 (09:10→21:15)
[2018-08-11] MEDS: INSULIN GLARGINE 100 UNITS/ML, PEN SQ-INSULIN SCH ×2 (09:11→21:15)
[2018-08-11 14:39] VITALS: BP 109/76
[2018-08-11] MEDS: NICOTINE 7 MG/24 HR PATCH.TD24 TD SCH (16:09)
[2018-08-11] MEDS: FUROSEMIDE 20 MG TABLET PO SCH (17:08)
[2018-08-11 17:12] VITALS: BP 136/87
[2018-08-11 19:46] VITALS: BP 106/70
[2018-08-12] VITALS (7 sets, daily range): BP systolic 99–166; BP diastolic 66–104
[2018-08-12] MEDS: CEFAZOLIN 2,000 MG in SODIUM CHLORIDE 0.9% 50 ML IV SCH ×3 (00:56→16:45)
[2018-08-12 03:34] LABS: BASOPHILS # (AUTO) 0.02 x10^3/uL (0-0.1); BASOPHILS % (AUTO) 0 % (0-1); EOSINOPHILS # (AUTO) 0.15 x10^3/uL (0-0.4); EOSINOPHILS % (AUTO) 2 % (1-7); LYMPHOCYTES # (AUTO) 1.52 x10^3/uL (1-3.4); LYMPHOCYTES % (AUTO) 24 % (22-44); MD NO; MEAN CORPUSCULAR VOLUME 93.6 fL (81-97); MONOCYTES # (AUTO) 0.72 x10^3/uL (0.2-0.8); MONOCYTES % (AUTO) 11 % (2-9); NEUTROPHILS % (AUTO) 62 % (42-75); PLATELET COUNT 623 x10^3/uL (130-400); RED BLOOD COUNT 4.57 x10^6/uL (4.38-5.82); RED CELL DISTRIBUTION WIDTH 14.3 % (9.4-14.8)
[2018-08-12 03:47] LABS: ALANINE AMINOTRANSFERASE 8 U/L (12-78); ALBUMIN 1.5 g/dL (3.4-5.0); ANION GAP 4 mmol/L (5-15); CALCIUM 8.1 mg/dL (8.5-10.1); CHLORIDE 102 mmol/L (98-107); CREATININE 0.49 mg/dL (0.7-1.3)
[2018-08-12 03:50] LABS: ALKALINE PHOSPHATASE 62 U/L (45-117); BILIRUBIN,TOTAL 0.3 mg/dL (0.2-1.0); TOTAL PROTEIN 5.1 g/dL (6.4-8.2)
[2018-08-12] MEDS: METOPROLOL TARTRATE 25 MG TABLET PO SCH ×2 (06:03→17:22)
[2018-08-12] MEDS: INSULIN LISPRO 100 UNITS/ML, PEN SQ-INSULIN SCH ×4 (07:30→20:52)
[2018-08-12] MEDS: FOLIC ACID 1 MG TABLET PO SCH (08:19)
[2018-08-12] MEDS: FUROSEMIDE 20 MG TABLET PO SCH ×2 (08:19→16:45)
[2018-08-12] MEDS: THIAMINE 100MG TABLET PO SCH ×2 (08:19→20:52)
[2018-08-12] MEDS: APIXABAN 5 MG TABLET PO SCH ×2 (08:19→20:51)
[2018-08-12] MEDS: SODIUM CHLORIDE FLUSH 10ML SYR IVF SCH ×2 (08:19→20:53)
[2018-08-12] MEDS: SENNA/DOCUSATE TABLET PO SCH ×2 (08:19→20:52)
[2018-08-12] MEDS: NICOTINE 7 MG/24 HR PATCH.TD24 TD SCH (16:09)
[2018-08-12] MEDS: INSULIN GLARGINE 100 UNITS/ML, PEN SQ-INSULIN SCH (20:52)
[2018-08-13 00:12] VITALS: BP 131/78
[2018-08-13] MEDS: CEFAZOLIN 2,000 MG in SODIUM CHLORIDE 0.9% 50 ML IV SCH ×3 (00:34→17:04)
[2018-08-13 04:21] LABS: ANION GAP 4 mmol/L (5-15); CHLORIDE 98 mmol/L (98-107); CREATININE 0.59 mg/dL (0.7-1.3)
[2018-08-13 05:55] VITALS: BP 163/93
[2018-08-13] MEDS: METOPROLOL TARTRATE 25 MG TABLET PO SCH ×2 (05:55→17:04)
[2018-08-13 07:15] VITALS: BP 160/93
[2018-08-13] MEDS: THIAMINE 100MG TABLET PO SCH ×2 (08:52→21:15)
[2018-08-13] MEDS: POTASSIUM CHLORIDE 10 MEQ TABLET.ER PO SCH (08:52)
[2018-08-13] MEDS: FUROSEMIDE 20 MG TABLET PO SCH ×2 (08:52→17:04)
[2018-08-13] MEDS: INSULIN LISPRO 100 UNITS/ML, PEN SQ-INSULIN SCH ×4 (08:53→21:14)
[2018-08-13] MEDS: SODIUM CHLORIDE FLUSH 10ML SYR IVF SCH ×2 (08:54→21:15)
[2018-08-13] MEDS: FOLIC ACID 1 MG TABLET PO SCH (08:57)
[2018-08-13] MEDS: APIXABAN 5 MG TABLET PO SCH ×2 (08:57→21:15)
[2018-08-13] MEDS: SENNA/DOCUSATE TABLET PO SCH ×2 (08:57→21:09)
[2018-08-13] MEDS ORDERED: INSULIN GLARGINE 100 UNITS/ML, PEN SQ-INSULIN SCH ×2 (09:00)
[2018-08-13 14:00] VITALS: BP 108/71
[2018-08-13] MEDS: NICOTINE 7 MG/24 HR PATCH.TD24 TD SCH (15:00)
[2018-08-13 18:50] VITALS: BP 113/70
[2018-08-13] MEDS: INSULIN GLARGINE 100 UNITS/ML, PEN SQ-INSULIN SCH (21:15)
[2018-08-14] MEDS: CEFAZOLIN 2,000 MG in SODIUM CHLORIDE 0.9% 50 ML IV SCH ×3 (00:51→17:07)
[2018-08-14 01:20] VITALS: BP 126/80
[2018-08-14] MEDS: METOPROLOL TARTRATE 25 MG TABLET PO SCH ×2 (05:36→17:08)
[2018-08-14 08:05] VITALS: BP 154/86
[2018-08-14] MEDS: INSULIN GLARGINE 100 UNITS/ML, PEN SQ-INSULIN SCH ×2 (08:18→21:33)
[2018-08-14] MEDS: THIAMINE 100MG TABLET PO SCH ×2 (08:18→21:25)
[2018-08-14] MEDS: INSULIN LISPRO 100 UNITS/ML, PEN SQ-INSULIN SCH ×4 (08:18→21:33)
[2018-08-14] MEDS: SODIUM CHLORIDE FLUSH 10ML SYR IVF SCH ×2 (08:19→21:25)
[2018-08-14] MEDS: FUROSEMIDE 20 MG TABLET PO SCH (08:19)
[2018-08-14] MEDS: SENNA/DOCUSATE TABLET PO SCH ×2 (08:19→21:25)
[2018-08-14] MEDS: FOLIC ACID 1 MG TABLET PO SCH (08:19)
[2018-08-14] MEDS: POTASSIUM CHLORIDE 10 MEQ TABLET.ER PO SCH (08:19)
[2018-08-14] MEDS: APIXABAN 5 MG TABLET PO SCH ×2 (08:19→21:25)
[2018-08-14 13:43] VITALS: BP 114/77
[2018-08-14] MEDS: NICOTINE 7 MG/24 HR PATCH.TD24 TD SCH (15:00)
[2018-08-14 17:08] VITALS: BP 111/69
[2018-08-14 20:10] VITALS: BP 124/75
[2018-08-15 00:55] VITALS: BP 119/73
[2018-08-15] MEDS: CEFAZOLIN 2,000 MG in SODIUM CHLORIDE 0.9% 50 ML IV SCH ×3 (01:11→17:24)
[2018-08-15 05:51] LABS: BASOPHILS # (AUTO) 0.04 x10^3/uL (0-0.1); BASOPHILS % (AUTO) 1 % (0-1); EOSINOPHILS # (AUTO) 0.13 x10^3/uL (0-0.4); EOSINOPHILS % (AUTO) 2 % (1-7); LYMPHOCYTES # (AUTO) 1.53 x10^3/uL (1-3.4); LYMPHOCYTES % (AUTO) 23 % (22-44); MD NO; MEAN CORPUSCULAR HEMOGLOBIN 30.1 pg (27.5-34.5); MEAN CORPUSCULAR HGB CONC 32.4 g/dL (33.2-36.2); MEAN CORPUSCULAR VOLUME 92.9 fL (81-97); MEAN PLATELET VOLUME 6.6 fL (7.4-10.4); MONOCYTES # (AUTO) 0.71 x10^3/uL (0.2-0.8); MONOCYTES % (AUTO) 11 % (2-9); NEUTROPHILS # (AUTO) 4.17 x10^3/uL (1.8-6.8); NEUTROPHILS % (AUTO) 63 % (42-75); PLATELET COUNT 699 x10^3/uL (130-400); RED BLOOD COUNT 4.24 x10^6/uL (4.38-5.82); RED CELL DISTRIBUTION WIDTH 14.9 % (9.4-14.8)
[2018-08-15 05:54] LABS: HCT (SEDRATE) 39.7 % (39.2-51.8)
[2018-08-15 06:03] LABS: ALANINE AMINOTRANSFERASE 11 U/L (12-78); ALBUMIN 1.8 g/dL (3.4-5.0); ANION GAP 5 mmol/L (5-15); CALCIUM 8.3 mg/dL (8.5-10.1); CHLORIDE 102 mmol/L (98-107); CREATININE 0.54 mg/dL (0.7-1.3)
[2018-08-15 06:09] VITALS: BP 148/82
[2018-08-15] MEDS: METOPROLOL TARTRATE 25 MG TABLET PO SCH ×2 (06:11→17:21)
[2018-08-15 06:12] LABS: ALKALINE PHOSPHATASE 56 U/L (45-117); BILIRUBIN,TOTAL 0.3 mg/dL (0.2-1.0); TOTAL PROTEIN 5.5 g/dL (6.4-8.2)
[2018-08-15] MEDS: INSULIN LISPRO 100 UNITS/ML, PEN SQ-INSULIN SCH ×4 (07:00→21:44)
[2018-08-15 07:42] VITALS: BP 128/82
[2018-08-15] MEDS: POTASSIUM CHLORIDE 10 MEQ TABLET.ER PO SCH (08:33)
[2018-08-15] MEDS: APIXABAN 5 MG TABLET PO SCH ×2 (08:33→21:43)
[2018-08-15] MEDS: FOLIC ACID 1 MG TABLET PO SCH (08:33)
[2018-08-15] MEDS: THIAMINE 100MG TABLET PO SCH ×2 (08:33→21:43)
[2018-08-15] MEDS: SODIUM CHLORIDE FLUSH 10ML SYR IVF SCH ×2 (08:34→21:46)
[2018-08-15] MEDS: INSULIN GLARGINE 100 UNITS/ML, PEN SQ-INSULIN SCH ×2 (08:34→21:44)
[2018-08-15] MEDS: FUROSEMIDE 20 MG TABLET PO SCH (08:34)
[2018-08-15] MEDS: SENNA/DOCUSATE TABLET PO SCH ×2 (08:34→21:43)
[2018-08-15 13:30] VITALS: BP 144/78
[2018-08-15] MEDS: NICOTINE 7 MG/24 HR PATCH.TD24 TD SCH (15:00)
[2018-08-15 19:06] VITALS: BP 145/75
[2018-08-16 01:03] VITALS: BP 134/69
[2018-08-16] MEDS: CEFAZOLIN 2,000 MG in SODIUM CHLORIDE 0.9% 50 ML IV SCH ×2 (01:15→11:05)
[2018-08-16 06:40] VITALS: BP 148/79
[2018-08-16] MEDS: METOPROLOL TARTRATE 25 MG TABLET PO SCH (06:42)
[2018-08-16] MEDS: INSULIN LISPRO 100 UNITS/ML, PEN SQ-INSULIN SCH ×3 (07:36→16:41)
[2018-08-16] MEDS: SENNA/DOCUSATE TABLET PO SCH ×2 (07:37→07:41)
[2018-08-16] MEDS: FUROSEMIDE 20 MG TABLET PO SCH (07:37)
[2018-08-16] MEDS: FOLIC ACID 1 MG TABLET PO SCH (07:37)
[2018-08-16] MEDS: APIXABAN 5 MG TABLET PO SCH (07:37)
[2018-08-16] MEDS: POTASSIUM CHLORIDE 10 MEQ TABLET.ER PO SCH (07:37)
[2018-08-16] MEDS: THIAMINE 100MG TABLET PO SCH (07:37)
[2018-08-16] MEDS: SODIUM CHLORIDE FLUSH 10ML SYR IVF SCH (07:38)
[2018-08-16] MEDS ORDERED: INSULIN GLARGINE 100 UNITS/ML, PEN SQ-INSULIN SCH (09:00)
[2018-08-16] MEDS ORDERED: APIX5TAB PO (12:32)
[2018-08-16] MEDS ORDERED: FOLI-17 PO (12:32)
[2018-08-16] MEDS ORDERED: NICO-485 TD (12:32)
[2018-08-16] MEDS ORDERED: INSU100I13 SQ-INSULIN ×2 (12:32)
[2018-08-16] MEDS ORDERED: CEFA2PLA9 IVPB (12:32)
[2018-08-16] MEDS ORDERED: INSU100I11 SQ-INSULIN (12:32)
[2018-08-16] MEDS ORDERED: THIA100T67 PO (12:32)
[2018-08-16] MEDS ORDERED: POTA10TA5 PO (12:32)
[2018-08-16] MEDS ORDERED: METO25TA35 PO (12:32)
[2018-08-16] MEDS ORDERED: FURO20TA3 PO (12:32)
[2018-08-16 13:02] VITALS: BP 122/78
[2018-08-16] MEDS: NICOTINE 7 MG/24 HR PATCH.TD24 TD SCH (15:37)
== END 2018-08-16 17:10 | DRG 853 ==
LOC: ED 11:05 → EDIP 12:09 → 4WST 13:03
PROVIDERS: ADMIT Internal Medicine; ATTEND Internal Medicine
PROC: 0KB70ZZ Excision of Right Upper Arm Muscle, Open Approach (ICD-10-PCS; principal; 2018-08-08 19:00)
PROC: 02HV33Z Insertion of Infusion Device into Superior Vena Cava, Percutaneous Approach (ICD-10-PCS; 2018-08-16)
PROC: B5181ZA Fluoroscopy of Superior Vena Cava using Low Osmolar Contrast, Guidance (ICD-10-PCS; 2018-08-16)
PROC: B548ZZA Ultrasonography of Superior Vena Cava, Guidance (ICD-10-PCS; 2018-08-16)
DX: A41.01 Sepsis due to Methicillin susceptible Staphylococcus aureus (principal); E11.00 Type 2 diabetes mellitus with hyperosmolarity without nonketotic hyperglycemic-hyperosmolar coma (NKHHC); E43 Unspecified severe protein-calorie malnutrition; J96.01 Acute respiratory failure with hypoxia; I82.621 Acute embolism and thrombosis of deep veins of right upper extremity; L03.113 Cellulitis of right upper limb; Z68.1 Body mass index [BMI] 19.9 or less, adult; D68.69 Other thrombophilia; E87.1 Hypo-osmolality and hyponatremia; I24.8 Other forms of acute ischemic heart disease; L02.413 Cutaneous abscess of right upper limb; E11.649 Type 2 diabetes mellitus with hypoglycemia without coma; E86.0 Dehydration; E87.6 Hypokalemia; I48.91 Unspecified atrial fibrillation; F17.210 Nicotine dependence, cigarettes, uncomplicated; G31.84 Mild cognitive impairment of uncertain or unknown etiology; H91.90 Unspecified hearing loss, unspecified ear; I10 Essential (primary) hypertension; I48.0 Paroxysmal atrial fibrillation; Z79.4 Long term (current) use of insulin; Z91.14 Patient's other noncompliance with medication regimen; Z91.19 Patient's noncompliance with other medical treatment and regimen; Z91.81 History of falling
CPT/HCPCS: 36415; 36573; 71045; 80048; 80053; 80202; 80307; 81001; 82010; 82533; 82803; 82962; 83036; 83605; 83690; 83735; 83930; 83935; 84100; 84145; 84300; 84443; 84484; 85025; 85651; 86140; 87040; 87070; 87075; 87077; 87147; 87186; 87205; 93005; 93308; 93321; 93325; 96361; 96372; 96374; G0378; J0690; J1100; J2250; J2405; J2543; J2704; J3010; J3370; J3480; P9047; C1751; J1815; J7030; J7040; J7050

== ENCOUNTER 2019-02-07 01:08 | Inpatient (IN) | payer MEDICARE ==
[~2019-02-07] VITALS: Ht 185.4 cm; Wt 70.2 kg
[~2019-02-07 01:08] MED LIST changes: +APIX5TAB PO; +CEFA2PLA9 IVPB; +FURO20TA3 PO; +INSU100I11 SQ-INSULIN; +METO25TA35 PO; +NICO-485 TD; +POTA10TA5 PO
--- NOTE | 2019-02-07 01:34 | NUR ---
TASK RN: JED IVERSON FROM [facility] WHERE PT WAS FOUND TO BE ALTERED W FSBS OF 26. GIVEN 250ML D10 WITH REPEAT FS OF 149. HX OF DM2. UPON ARRIVAL, PT PWD, AMBULATORY WITHOUT ASSISTANCE AND FOLLOWING COMMANDS, FSBS 79. DENIES PAIN/NAUSEA/DIZZINESS. REPORTS HE "CAN'T REMEMBER WHEN HE TOOK HIS INSULIN LAST" OR HOW MUCH HE TOOK. PT PROVIDED PO JUICE AND MILK. PT SHIVERING, GIVEN BLANKETS AND WARMER TO REDUCE SHIVER. BP/SPO2/ECG MONITORING IN PLACE. SINUS TACH ON MONITOR.
--- NOTE | 2019-02-07 01:43 | NUR ---
TASK RN: MEDICATION REQUESTED FROM PHARMACY
[2019-02-07] MEDS ORDERED: DEXTROSE 10% 1,000 ML IV SCH ×2 (02:00→05:30)
[2019-02-07 02:06] LABS: BASOPHILS # (AUTO) 0.02 x10^3/uL (0-0.1); BASOPHILS % (AUTO) 0 % (0-1); EOSINOPHILS # (AUTO) 0.28 x10^3/uL (0-0.4); EOSINOPHILS % (AUTO) 3 % (1-7); LYMPHOCYTES # (AUTO) 0.59 x10^3/uL (1-3.4); LYMPHOCYTES % (AUTO) 7 % (22-44); MD NO; MEAN CORPUSCULAR HEMOGLOBIN 29.8 pg (27.5-34.5); MEAN CORPUSCULAR HGB CONC 32.7 g/dL (33.2-36.2); MEAN CORPUSCULAR VOLUME 91.1 fL (81-97); MEAN PLATELET VOLUME 7.4 fL (7.4-10.4); MONOCYTES # (AUTO) 0.58 x10^3/uL (0.2-0.8); MONOCYTES % (AUTO) 7 % (2-9); NEUTROPHILS % (AUTO) 83 % (42-75); PLATELET COUNT 319 x10^3/uL (130-400); RED BLOOD COUNT 4.61 x10^6/uL (4.38-5.82); RED CELL DISTRIBUTION WIDTH 16.3 % (9.4-14.8)
[2019-02-07 02:19] LABS: ANION GAP 5 mmol/L (5-15); CALCIUM 8.9 mg/dL (8.5-10.1); CHLORIDE 107 mmol/L (98-107); CREATININE 0.71 mg/dL (0.7-1.3)
--- NOTE | 2019-02-07 04:29 | NUR ---
PT BS 65, NOTIFIED, PROVIDER VERBAL ORDERED PT D10 FLUIDS AT 200CC/HR FROM 100CC/HR
[2019-02-07] MEDS ORDERED: ACETAMINOPHEN 325 MG TABLET PO PRN (05:30)
[2019-02-07] MEDS ORDERED: ONDANSETRON 2MG/ML, 2ML IVPush PRN (05:30)
[2019-02-07] MEDS ORDERED: SODIUM CHLORIDE 0.9% 1,000ML IVBOLUS ONE (05:30)
[2019-02-07] MEDS ORDERED: ATOR-2 PO (06:11)
[2019-02-07] MEDS ORDERED: LINA5TAB PO (06:11)
[2019-02-07] MEDS ORDERED: METF500T17 PO (06:11)
[2019-02-07] MEDS ORDERED: OXYB5TAB10 PO (06:11)
[2019-02-07 06:28] LABS: ANION GAP 6 mmol/L (5-15); CALCIUM 8.6 mg/dL (8.5-10.1); CHLORIDE 106 mmol/L (98-107); CREATININE 0.67 mg/dL (0.7-1.3)
--- NOTE | 2019-02-07 06:34 | NUR ---
pt provided cracker, peanut butter, ceral and juice. pt bs is currently 53 5 min after pt ate. provider notified.
--- NOTE | 2019-02-07 06:39 | NUR ---
provider gave verbal order to give d10 at 250cc/hr and some juice.
--- NOTE | 2019-02-07 06:40 | NUR ---
pt provided 2 oj's
--- NOTE | 2019-02-07 07:16 | NUR ---
LATE NOTE ENTRY DUE TO PT CARE FOR 0645: Received bedside report from KOURTNEY Castillo. All questions answered. Assuming care of pt at this time. Pt resting on hospital bed with PIV medications infusing per EMAR. Pt remains connected to library monitor and pulse ox monitor. NADN. No needs expressed. Call light within reach. Bed rails up x 3.
--- NOTE | 2019-02-07 07:17 | NUR ---
Rechecked pt's blood glucose. Please see charting. Pt ordered food tray. Pt appreciative.
--- NOTE | 2019-02-07 08:09 | NUR ---
Rechecked pt's FSBG. Please see charting. Provided pt breakfast tray. No other needs requested. EDMD aware of pt's BG.
--- NOTE | 2019-02-07 08:14 | NUR ---
LATE NOTE ENTRY FOR 0645: Per Jonathan RN, pt's PIV medication infusing "was titrated up to 250 mL/hour" due to hypoglycemia.
--- NOTE | 2019-02-07 08:15 | NUR ---
Per EDMD verbal order, "titrate to 150 mL/hour" pt's PIV medicaiton infusing per EMAR.
[2019-02-07] MEDS ORDERED: APIXABAN 5 MG TABLET ONE (08:21)
[2019-02-07] MEDS: APIXABAN 5 MG TABLET PO SCH ×2 (09:16→20:57)
--- NOTE | 2019-02-07 09:19 | NUR ---
Obtained FSBG. Please see charting. EDMD aware of BG. Provided pt medication per EMAR. Pt resting with eyes closed on hospital bed. Pt has unlabored respirations with even chest rise and fall. No needs expressed at this time.
--- NOTE | 2019-02-07 09:33 | NUR ---
Discontinued PIV medications per EMAR per EDMD verbal order related to pt's FSBG at 0915. PIV NS TKO at 10 mL/hour infusing per EDMD verbal order.
[2019-02-07 09:34] LABS: MICROSCOPIC NOT IND
[2019-02-07] MEDS ORDERED: INSU100C SQ-INSULIN (09:40)
[2019-02-07] MEDS ORDERED: METF1000 PO (09:43)
[2019-02-07] MEDS ORDERED: ATOR40TA78 PO (09:43)
--- NOTE | 2019-02-07 09:51 | NUR ---
Called [phone] and left voicemail for return call for Dr. Ray.
--- NOTE | 2019-02-07 10:03 | NUR ---
Ordered compression machine for sequentials from central supply.
--- NOTE | 2019-02-07 10:23 | NUR ---
Sequential compression calf pump and pads applied to pt's lower extremities. FSBG obtained, please see charting. VS obtained, please see charting. NADN. No needs expressed.
--- NOTE | 2019-02-07 11:37 | NUR ---
Called and left voicemail for Dr. Ray asking for clarification on order of Q1hour FSBG checks due to pt being downgraded from CCU to Medical.
--- NOTE | 2019-02-07 11:42 | NUR ---
Called and attempted to provide report to KOURTNEY Mcgrath. KOURTNEY Mcgrath to call EDRN back.
--- NOTE | 2019-02-07 12:15 | NUR ---
Provided report to KOURTNEY Mcgrath. All questions answered. Pt ready to transfer from ED to floor. NADN. No needs expressed.
[2019-02-07 12:57] VITALS: BP 111/72
[2019-02-07] MEDS ORDERED: PERMETHRIN CRM 5%, 60GM TP SCH (13:00)
[2019-02-07] MEDS ORDERED: INSULIN LISPRO 100 UNITS/ML, PEN SQ-INSULIN SCH (18:00)
[2019-02-07 19:32] VITALS: BP 102/65
[2019-02-07] MEDS: OXYBUTYNIN CHLORIDE 5 MG TABLET PO SCH (20:05)
[2019-02-07] MEDS: ATORVASTATIN 40 MG TABLET PO SCH (20:05)
[2019-02-07] MEDS: INSULIN LISPRO 100 UNITS/ML, PEN SQ-INSULIN SCH ×2 (20:06→23:00)
[2019-02-08 02:12] VITALS: BP 146/90
[2019-02-08] MEDS: INSULIN LISPRO 100 UNITS/ML, PEN SQ-INSULIN SCH ×6 (03:00→20:26)
[2019-02-08 05:57] LABS: BASOPHILS # (AUTO) 0.03 x10^3/uL (0-0.1); BASOPHILS % (AUTO) 1 % (0-1); EOSINOPHILS % (AUTO) 21 % (1-7); LYMPHOCYTES # (AUTO) 1.24 x10^3/uL (1-3.4); LYMPHOCYTES % (AUTO) 22 % (22-44); MD NO; MEAN CORPUSCULAR HGB CONC 32.7 g/dL (33.2-36.2); MEAN CORPUSCULAR VOLUME 91.7 fL (81-97); MEAN PLATELET VOLUME 7.4 fL (7.4-10.4); MONOCYTES # (AUTO) 0.58 x10^3/uL (0.2-0.8); MONOCYTES % (AUTO) 10 % (2-9); NEUTROPHILS # (AUTO) 2.53 x10^3/uL (1.8-6.8); NEUTROPHILS % (AUTO) 45 % (42-75); PLATELET COUNT 285 x10^3/uL (130-400); RED BLOOD COUNT 4.37 x10^6/uL (4.38-5.82)
[2019-02-08 07:25] VITALS: BP 116/74
[2019-02-08] MEDS: APIXABAN 5 MG TABLET PO SCH ×2 (09:53→20:25)
[2019-02-08] MEDS: OXYBUTYNIN CHLORIDE 5 MG TABLET PO SCH ×2 (09:53→20:26)
[2019-02-08 12:44] VITALS: BP 96/63
[2019-02-08 19:53] VITALS: BP 101/64
[2019-02-08] MEDS: ATORVASTATIN 40 MG TABLET PO SCH (20:26)
[2019-02-08] MEDS ORDERED: INSULIN GLARGINE 100 UNITS/ML, PEN SQ-INSULIN SCH (21:00)
[2019-02-09 01:38] VITALS: BP 110/69
[2019-02-09 06:09] LABS: ANION GAP 5 mmol/L (5-15); CALCIUM 8.3 mg/dL (8.5-10.1); CHLORIDE 106 mmol/L (98-107); CREATININE 0.83 mg/dL (0.7-1.3)
[2019-02-09 08:00] VITALS: BP 129/78
[2019-02-09] MEDS: APIXABAN 5 MG TABLET PO SCH (08:09)
[2019-02-09] MEDS: OXYBUTYNIN CHLORIDE 5 MG TABLET PO SCH (08:09)
[2019-02-09] MEDS: INSULIN LISPRO 100 UNITS/ML, PEN SQ-INSULIN SCH ×2 (08:09→11:53)
[2019-02-09] MEDS ORDERED: INSU100I13 SQ-INSULIN (13:44)
[2019-02-09 14:45] VITALS: BP 145/74
== END 2019-02-09 16:16 | disposition home or self-care (01) | DRG 637 ==
LOC: ED 05:08 → EDIP 05:10 → 3N 12:31
PROVIDERS: ADMIT Internal Medicine; ATTEND Hospitalist
DX: E11.649 Type 2 diabetes mellitus with hypoglycemia without coma (principal); G93.41 Metabolic encephalopathy; E46 Unspecified protein-calorie malnutrition; E87.2 Acidosis; I48.91 Unspecified atrial fibrillation; B86 Scabies; E78.5 Hyperlipidemia, unspecified; F10.10 Alcohol abuse, uncomplicated; F17.210 Nicotine dependence, cigarettes, uncomplicated; G31.84 Mild cognitive impairment of uncertain or unknown etiology; I10 Essential (primary) hypertension; L29.9 Pruritus, unspecified; N32.81 Overactive bladder; Z59.0 Homelessness; Z68.20 Body mass index [BMI] 20.0-20.9, adult; Z86.718 Personal history of other venous thrombosis and embolism; Z79.01 Long term (current) use of anticoagulants; Z79.4 Long term (current) use of insulin; I95.9 Hypotension, unspecified
CPT/HCPCS: 36415; 80048; 81003; 82962; 84145; 85025; 96360; 96361; G0378; J1815; J7030

== ENCOUNTER 2019-09-13 16:16 | Emergency (ER) | payer MEDICARE ==
[~2019-09-13] VITALS: Ht 185.4 cm; Wt 73.0 kg
[~2019-09-13 16:16] MED LIST changes: +ATOR-2 PO; +ATOR40TA78 PO; +INSU100C SQ-INSULIN; +LINA5TAB PO; +METF1000 PO; +METF500T17 PO; +MULT-449 PO; -MULT1TAB60 PO; +OXYB5TAB10 PO
[2019-09-13 16:23] VITALS: BP 121/65
--- NOTE | 2019-09-13 16:56 | NUR ---
PATIENT BIB [facility] AFTER [facility] CALLED DUE TO CONCERNS ABOUT PATIENT'S BP BEING LOW. PATIENT WAS BEING SEEN IN THE CLINIC FOR SUTURE REMOVAL AND WOUND CARE FOLLOWING RIGHT TOE AMPUTATIONS. PATIENT WAS NOTED TO BE HYPOTENSIVE IN THE CLINIC, AND PROVIDER AT CLINIC REPORTS SEEING A-FLUTTER ON PATIENT'S EKG. PER [facility], NO A-FLUTTER SEEN ON 12 LEAD EN ROUTE. PATIENT GIVEN 200 CC FLUID BOLUS EN ROUTE TO HOSPITAL. BLOOD GLUCOSE IN AMBULANCE WAS 425. PATIENT IS A&OX4, DENIES PAIN, DENIES SOB, BP IS 121/65. PER PATIENT "I FEEL FINE."
[2019-09-13 16:59] LABS: BASOPHILS # (AUTO) 0.02 x10^3/uL (0-0.1); BASOPHILS % (AUTO) 1 % (0-1); EOSINOPHILS % (AUTO) 2 % (1-7); LYMPHOCYTES # (AUTO) 1.09 x10^3/uL (1-3.4); LYMPHOCYTES % (AUTO) 23 % (22-44); MD NO; MEAN CORPUSCULAR HEMOGLOBIN 27.7 pg (27.5-34.5); MEAN CORPUSCULAR HGB CONC 31.9 g/dL (33.2-36.2); MEAN CORPUSCULAR VOLUME 86.7 fL (81-97); MEAN PLATELET VOLUME 8.1 fL (7.4-10.4); MONOCYTES # (AUTO) 0.71 x10^3/uL (0.2-0.8); MONOCYTES % (AUTO) 15 % (2-9); NEUTROPHILS # (AUTO) 2.79 x10^3/uL (1.8-6.8); NEUTROPHILS % (AUTO) 59 % (42-75); PLATELET COUNT 376 x10^3/uL (130-400); RED BLOOD COUNT 4.58 x10^6/uL (4.38-5.82); RED CELL DISTRIBUTION WIDTH 16.5 % (9.4-14.8)
[2019-09-13 17:09] LABS: ALBUMIN 2.9 g/dL (3.4-5.0); ANION GAP 5 mmol/L (5-15); CALCIUM 8.4 mg/dL (8.5-10.1); CHLORIDE 100 mmol/L (98-107); CREATININE 0.94 mg/dL (0.7-1.3)
--- NOTE | 2019-09-13 18:08 | NUR ---
JUNAID RN: WOUND CARE PERFORMED.
== END 2019-09-13 18:10 | disposition home or self-care (01) ==
LOC: ED 18:04
DX: I48.20 Chronic atrial fibrillation, unspecified (principal); R00.0 Tachycardia, unspecified; E11.65 Type 2 diabetes mellitus with hyperglycemia; F17.200 Nicotine dependence, unspecified, uncomplicated
CPT/HCPCS: 36415; 80048; 82040; 85025; 93005; 99284

== ENCOUNTER 2019-10-16 17:55 | Emergency (ER) | payer MEDICARE ==
[~2019-10-16] VITALS: Ht 185.4 cm; Wt 63.9 kg
[2019-10-16 18:27] LABS: PH, VENOUS 7.392 pH (7.320-7.420)
[2019-10-16] MEDS ORDERED: SODIUM CHLORIDE 0.9% 1,000ML IVBOLUS ONE ×2 (18:30→19:30)
[2019-10-16] MEDS ORDERED: METFORMIN (18:36)
[2019-10-16 18:40] LABS: ALANINE AMINOTRANSFERASE 12 U/L (12-78); ALBUMIN 3.2 g/dL (3.4-5.0); ANION GAP 13 mmol/L (5-15); CHLORIDE 94 mmol/L (98-107); CREATININE 1.39 mg/dL (0.7-1.3)
[2019-10-16 18:42] LABS: ALKALINE PHOSPHATASE 92 U/L (45-117); BILIRUBIN,TOTAL 0.8 mg/dL (0.2-1.0); TOTAL PROTEIN 7.4 g/dL (6.4-8.2)
--- NOTE | 2019-10-16 18:56 | NUR ---
REPORT GIVEN TO QUINTEN
[2019-10-16 19:04] LABS: BASOPHILS # (AUTO) 0.03 x10^3/uL (0-0.1); BASOPHILS % (AUTO) 1 % (0-1); EOSINOPHILS # (AUTO) 0.03 x10^3/uL (0-0.4); EOSINOPHILS % (AUTO) 1 % (1-7); LYMPHOCYTES # (AUTO) 1.46 x10^3/uL (1-3.4); LYMPHOCYTES % (AUTO) 31 % (22-44); MD NO; MEAN CORPUSCULAR HEMOGLOBIN 27.1 pg (27.5-34.5); MEAN CORPUSCULAR HGB CONC 32.2 g/dL (33.2-36.2); MEAN CORPUSCULAR VOLUME 84.1 fL (81-97); MEAN PLATELET VOLUME 9.3 fL (7.4-10.4); MONOCYTES # (AUTO) 0.44 x10^3/uL (0.2-0.8); MONOCYTES % (AUTO) 9 % (2-9); NEUTROPHILS # (AUTO) 2.82 x10^3/uL (1.8-6.8); NEUTROPHILS % (AUTO) 59 % (42-75); PLATELET COUNT 326 x10^3/uL (130-400); RED BLOOD COUNT 5.22 x10^6/uL (4.38-5.82); RED CELL DISTRIBUTION WIDTH 17.4 % (9.4-14.8)
--- NOTE | 2019-10-16 19:12 | NUR ---
Fluids infusing and patient given warm blanket.
[2019-10-16 19:18] LABS: ACETONE, SERUM Moderate(40mg/dL) (Negative)
[2019-10-16] MEDS ORDERED: INSULIN SINGLE DOSE, ER ONE (19:19)
--- NOTE | 2019-10-16 19:26 | NUR ---
PT PROVIDED WITH MEAL AND MEDICATED PER EMAR.
[2019-10-16] MEDS ORDERED: INSULIN REGULAR 100 UNITS/ML, 3ML VIAL SQ-INSULIN ONE (19:30)
[2019-10-16 21:19] VITALS: BP 92/64
--- NOTE | 2019-10-16 21:21 | NUR ---
Patient/Caregiver given discharge instructions and they have confirmed that they understand the instructions. Patient ambulatory with steady gait.
== END 2019-10-16 21:23 | disposition home or self-care (01) ==
LOC: ED 21:20
DX: E86.0 Dehydration (principal); E11.65 Type 2 diabetes mellitus with hyperglycemia; R53.1 Weakness; R53.83 Other fatigue; R94.31 Abnormal electrocardiogram [ECG] [EKG]; I10 Essential (primary) hypertension; I48.91 Unspecified atrial fibrillation
CPT/HCPCS: 36415; 80053; 82010; 82803; 82962; 83735; 84100; 85025; 93005; 96360; 99284; J1815; J7030

== ENCOUNTER 2020-03-21 08:46 | Inpatient (IN) | payer MEDICARE ==
[~2020-03-21] VITALS: Ht 185.4 cm; Wt 72.4 kg
[~2020-03-21 08:46] MED LIST changes: +ACID1TAB7 PO; +CARV6.2512 PO; +FERR-51 PO; -FOLI-17 PO; +FOLI1TAB32 PO; +METFORMIN
[2020-03-21] MEDS ORDERED: SODIUM CHLORIDE FLUSH 10ML SYR IVF ONE (09:00)
[2020-03-21 10:06] LABS: BASOPHILS % (AUTO) 1 % (0-1); EOSINOPHILS % (AUTO) 7 % (1-7); LYMPHOCYTES % (AUTO) 29 % (22-44); MEAN CORPUSCULAR HEMOGLOBIN 26.3 pg (27.5-34.5); MEAN CORPUSCULAR HGB CONC 31.7 g/dL (33.2-36.2); MONOCYTES % (AUTO) 11 % (2-9); NEUTROPHILS % (AUTO) 52 % (42-75); PLATELET COUNT 365 x10^3/uL (130-400); RED BLOOD COUNT 5.09 x10^6/uL (4.38-5.82); RED CELL DISTRIBUTION WIDTH 17.1 % (9.4-14.8)
[2020-03-21] MEDS ORDERED: PERMETHRIN CRM 5%, 60GM TP ONE (10:07)
--- NOTE | 2020-03-21 10:08 | NUR ---
LATE ENTRY: PT BIB EMS FROM [facility] FOR WEAKNESS/SOB/DIZZINESS X1 WEEK. PT STATES HX OF AFIB AND DM. PT IS NON COMPLIANT W/MEDS "I FALL AND I CANT GET UP. IM NOT ABLE TO WALK TO GET MY MEDICINE." PT HAS SCRATCHES ALL OVER BODY. BUGS NOTED ON PT CLOTHING. CHIEF CLIENT OFFICER NOTIFIED. MONITORS CONNECTED. PT TAKEN TO SHOWER AND PLACED IN CLEAN ROOM. IV ACCESS OBTAINED. LABS COLLECTED
[2020-03-21 10:12] LABS: MD NO
[2020-03-21 10:16] LABS: ALANINE AMINOTRANSFERASE 14 U/L (12-78); ALBUMIN 3.4 g/dL (3.4-5.0); ANION GAP 6 mmol/L (5-15); CALCIUM 9.4 mg/dL (8.5-10.1); CHLORIDE 103 mmol/L (98-107); CREATININE 0.97 mg/dL (0.7-1.3)
[2020-03-21 10:21] LABS: ALKALINE PHOSPHATASE 110 U/L (45-117); BILIRUBIN,TOTAL 0.7 mg/dL (0.2-1.0); TOTAL PROTEIN 7.8 g/dL (6.4-8.2); TROPONIN I 0.036 ng/mL (0.000-0.045)
--- NOTE | 2020-03-21 10:28 | NUR ---
TASK RN: PATIENT RESTING IN GURNEY, DRINKING COFFEE, URINAL WITHIN REACH, NADN, CALL LIGHT WITHIN REACH.
[2020-03-21 10:59] LABS: MICROSCOPIC AUTO
[2020-03-21] MEDS ORDERED: AZITHROMYCIN 500 MG in SODIUM CHLORIDE 0.9% 250 ML IV ONE (11:00)
[2020-03-21] MEDS ORDERED: CEFTRIAXONE PMX 1GM/50ML 50 ML IV ONE (11:00)
[2020-03-21] MEDS ORDERED: CEFTRIAXONE PMX 1GM/50ML 50 ML ONE (11:30)
--- NOTE | 2020-03-21 11:48 | NUR ---
PT SITTING UP ON GURNEY. ORDERED MEDS INFUSING. ORDERED TOPICAL MEDS APPLIED. STATES HE IS HUNGRY. CALL LIGHT W/IN REACH.
[2020-03-21] MEDS ORDERED: ACETAMINOPHEN 325 MG TABLET PO PRN (13:00)
[2020-03-21] MEDS ORDERED: ENOXAPARIN 40 MG/0.4 ML SQ SCH (13:00)
[2020-03-21] MEDS ORDERED: ONDANSETRON ODT 4 MG PO PRN (13:00)
[2020-03-21] MEDS ORDERED: LACTATED RINGERS 1,000 ML IV SCH (13:00)
[2020-03-21] MEDS ORDERED: ENOXAPARIN 40 MG/0.4 ML ONE (13:07)
--- NOTE | 2020-03-21 13:15 | NUR ---
LATE ENTRY DUE TO PATIENT CARE: FOOD TRAY PROVIDED, LR GABRIELLE, TO, VSS, CALL LIGHT WITHIN REACH. WAITING FOR TRANSPORTATION UPSTAIRS.
--- NOTE | 2020-03-21 13:26 | NUR ---
REPORT GIVEN TO GENEVA OCONNELL
[2020-03-21 14:38] VITALS: BP 123/79
[2020-03-21] MEDS: LACTOBACILLUS CHEW TABLET PO SCH ×2 (15:10→20:43)
[2020-03-21] MEDS: FERROUS SULFATE 325 MG TABLET PO SCH (15:10)
[2020-03-21] MEDS: LACTATED RINGERS 1,000 ML IV SCH (15:20)
[2020-03-21] MEDS: CARVEDILOL 6.25 MG TABLET PO SCH (17:38)
[2020-03-21] MEDS: metFORMIN 500 MG TABLET PO SCH (17:38)
[2020-03-21] MEDS: OXYBUTYNIN CHLORIDE 5 MG TABLET PO SCH (20:43)
[2020-03-21] MEDS: ATORVASTATIN 40 MG TABLET PO SCH (20:43)
[2020-03-21] MEDS: APIXABAN 5 MG TABLET PO SCH (20:43)
[2020-03-21 20:48] VITALS: BP 120/85
[2020-03-21] MEDS ORDERED: INSULIN GLARGINE 100 UNITS/ML, PEN SQ-INSULIN SCH (21:00)
[2020-03-21] MEDS: INSULIN LISPRO 100 UNITS/ML, PEN SQ-INSULIN SCH (21:56)
[2020-03-22 02:21] VITALS: BP 91/55
[2020-03-22] MEDS: LACTATED RINGERS 1,000 ML IV SCH (03:50)
[2020-03-22 05:24] VITALS: BP 149/79
[2020-03-22] MEDS: CARVEDILOL 6.25 MG TABLET PO SCH ×2 (05:26→16:24)
[2020-03-22 05:39] LABS: BASOPHILS % (AUTO) 2 % (0-1); EOSINOPHILS % (AUTO) 6 % (1-7); LYMPHOCYTES % (AUTO) 23 % (22-44); MEAN CORPUSCULAR HGB CONC 31.7 g/dL (33.2-36.2); MEAN PLATELET VOLUME 7.9 fL (7.4-10.4); MONOCYTES % (AUTO) 11 % (2-9); NEUTROPHILS % (AUTO) 59 % (42-75); PLATELET COUNT 377 x10^3/uL (130-400); RED BLOOD COUNT 4.36 x10^6/uL (4.38-5.82)
[2020-03-22 05:43] LABS: MD NO
[2020-03-22 05:56] LABS: ANION GAP 5 mmol/L (5-15); CALCIUM 8.7 mg/dL (8.5-10.1); CHLORIDE 106 mmol/L (98-107); CREATININE 0.76 mg/dL (0.7-1.3)
[2020-03-22 06:43] VITALS: BP 99/63
[2020-03-22] MEDS: INSULIN LISPRO 100 UNITS/ML, PEN SQ-INSULIN SCH ×4 (07:19→21:14)
[2020-03-22] MEDS: metFORMIN 500 MG TABLET PO SCH ×2 (07:19→16:20)
[2020-03-22] MEDS: OXYBUTYNIN CHLORIDE 5 MG TABLET PO SCH ×2 (09:21→21:12)
[2020-03-22] MEDS: LACTOBACILLUS CHEW TABLET PO SCH ×3 (09:21→21:12)
[2020-03-22] MEDS: APIXABAN 5 MG TABLET PO SCH ×2 (09:21→21:12)
[2020-03-22] MEDS: FUROSEMIDE 20 MG TABLET PO SCH (09:21)
[2020-03-22 12:07] VITALS: BP 127/78
[2020-03-22] MEDS ORDERED: DEXTROSE 50%, 50ML SYRINGE IVPush PRN (18:00)
[2020-03-22] MEDS ORDERED: DEXTROSE 4 GM TAB.CHEW PO PRN (18:00)
[2020-03-22] MEDS ORDERED: GLUCAGON 1 MG IM PRN (18:00)
[2020-03-22] MEDS ORDERED: CEFTRIAXONE PMX 2GM/50ML 50 ML IVPB SCH (18:00)
[2020-03-22 19:16] VITALS: BP 116/72
[2020-03-22] MEDS: DOXYCYCLINE 100 MG in DEXTROSE 5% 250 ML IV SCH (19:22)
[2020-03-22] MEDS: ATORVASTATIN 40 MG TABLET PO SCH (21:12)
[2020-03-22] MEDS: INSULIN GLARGINE 100 UNITS/ML, PEN SQ-INSULIN SCH (21:17)
[2020-03-22] MEDS: SODIUM CHLORIDE FLUSH 10ML SYR IVF SCH (21:18)
[2020-03-23 01:11] VITALS: BP 118/59
[2020-03-23] MEDS: CARVEDILOL 6.25 MG TABLET PO SCH ×3 (05:50→18:00)
[2020-03-23] MEDS: INSULIN LISPRO 100 UNITS/ML, PEN SQ-INSULIN SCH ×4 (07:00→21:10)
[2020-03-23] MEDS: metFORMIN 500 MG TABLET PO SCH ×2 (07:25→18:09)
[2020-03-23] MEDS: DOXYCYCLINE 100 MG in DEXTROSE 5% 250 ML IV SCH (07:25)
[2020-03-23 07:47] VITALS: BP 100/71
[2020-03-23] MEDS: FUROSEMIDE 20 MG TABLET PO SCH (08:43)
[2020-03-23] MEDS: LACTOBACILLUS CHEW TABLET PO SCH ×3 (08:43→21:08)
[2020-03-23] MEDS: OXYBUTYNIN CHLORIDE 5 MG TABLET PO SCH ×2 (08:44→21:08)
[2020-03-23] MEDS: SODIUM CHLORIDE FLUSH 10ML SYR IVF SCH ×2 (08:44→21:00)
[2020-03-23] MEDS: APIXABAN 5 MG TABLET PO SCH ×2 (08:44→21:08)
[2020-03-23] MEDS ORDERED: FUROSEMIDE 40 MG/4 ML IV ONE (10:00)
[2020-03-23] MEDS: FERROUS SULFATE 325 MG TABLET PO SCH (13:28)
[2020-03-23 15:26] VITALS: BP 99/62
[2020-03-23 18:07] VITALS: BP 93/62
[2020-03-23 20:09] VITALS: BP 135/44
[2020-03-23] MEDS ORDERED: DOXYCYCLINE 100MG TABLET PO SCH (21:00)
[2020-03-23 21:02] LABS: ANION GAP 8 mmol/L (5-15); CALCIUM 8.8 mg/dL (8.5-10.1); CHLORIDE 102 mmol/L (98-107); CREATININE 0.98 mg/dL (0.7-1.3)
[2020-03-23 21:03] LABS: BASOPHILS % (AUTO) 0 % (0-1); EOSINOPHILS % (AUTO) 6 % (1-7); LYMPHOCYTES % (AUTO) 23 % (22-44); MEAN CORPUSCULAR HEMOGLOBIN 25.9 pg (27.5-34.5); MEAN CORPUSCULAR HGB CONC 32.2 g/dL (33.2-36.2); MEAN PLATELET VOLUME 8.5 fL (7.4-10.4); MONOCYTES % (AUTO) 10 % (2-9); NEUTROPHILS % (AUTO) 61 % (42-75); PLATELET COUNT 338 x10^3/uL (130-400); RED BLOOD COUNT 4.21 x10^6/uL (4.38-5.82); RED CELL DISTRIBUTION WIDTH 17.3 % (9.4-14.8)
[2020-03-23 21:07] LABS: MD NO
[2020-03-23] MEDS: ATORVASTATIN 40 MG TABLET PO SCH (21:08)
[2020-03-23] MEDS: INSULIN GLARGINE 100 UNITS/ML, PEN SQ-INSULIN SCH (21:09)
[2020-03-24 01:32] VITALS: BP 96/64
[2020-03-24 04:35] LABS: BASOPHILS % (AUTO) 1 % (0-1); EOSINOPHILS % (AUTO) 6 % (1-7); LYMPHOCYTES % (AUTO) 26 % (22-44); MEAN CORPUSCULAR HEMOGLOBIN 25.8 pg (27.5-34.5); MEAN CORPUSCULAR HGB CONC 31.8 g/dL (33.2-36.2); MONOCYTES % (AUTO) 14 % (2-9); NEUTROPHILS % (AUTO) 53 % (42-75); PLATELET COUNT 340 x10^3/uL (130-400); RED BLOOD COUNT 4.22 x10^6/uL (4.38-5.82); RED CELL DISTRIBUTION WIDTH 17.6 % (9.4-14.8)
[2020-03-24 04:41] LABS: ANION GAP 10 mmol/L (5-15); CALCIUM 8.4 mg/dL (8.5-10.1); CHLORIDE 105 mmol/L (98-107); CREATININE 0.81 mg/dL (0.7-1.3)
[2020-03-24 04:42] LABS: MD NO
[2020-03-24 05:12] VITALS: BP 94/68
[2020-03-24] MEDS: CARVEDILOL 6.25 MG TABLET PO SCH ×2 (05:12→17:43)
[2020-03-24 07:44] VITALS: BP 92/55
[2020-03-24] MEDS: INSULIN LISPRO 100 UNITS/ML, PEN SQ-INSULIN SCH ×4 (09:03→20:40)
[2020-03-24] MEDS: SODIUM CHLORIDE FLUSH 10ML SYR IVF SCH ×2 (09:04→20:39)
[2020-03-24] MEDS: metFORMIN 500 MG TABLET PO SCH ×2 (09:04→17:43)
[2020-03-24] MEDS: OXYBUTYNIN CHLORIDE 5 MG TABLET PO SCH ×2 (09:04→20:39)
[2020-03-24] MEDS: FUROSEMIDE 40 MG/4 ML IV SCH (09:04)
[2020-03-24] MEDS: APIXABAN 5 MG TABLET PO SCH ×2 (09:04→20:39)
[2020-03-24] MEDS: LACTOBACILLUS CHEW TABLET PO SCH ×3 (09:04→20:39)
[2020-03-24 12:40] VITALS: BP 96/60
[2020-03-24 20:00] VITALS: BP 115/76
[2020-03-24] MEDS: ATORVASTATIN 40 MG TABLET PO SCH (20:39)
[2020-03-24] MEDS: INSULIN GLARGINE 100 UNITS/ML, PEN SQ-INSULIN SCH (20:40)
[2020-03-25 00:03] VITALS: BP 88/52
[2020-03-25 02:04] VITALS: BP 108/71
[2020-03-25] MEDS: CARVEDILOL 6.25 MG TABLET PO SCH ×2 (05:48→17:25)
[2020-03-25 06:58] VITALS: BP 116/83
[2020-03-25 07:39] LABS: BASOPHILS % (AUTO) 1 % (0-1); EOSINOPHILS % (AUTO) 5 % (1-7); LYMPHOCYTES % (AUTO) 26 % (22-44); MEAN CORPUSCULAR HEMOGLOBIN 25.7 pg (27.5-34.5); MEAN CORPUSCULAR HGB CONC 31.6 g/dL (33.2-36.2); MEAN PLATELET VOLUME 7.9 fL (7.4-10.4); MONOCYTES % (AUTO) 15 % (2-9); NEUTROPHILS % (AUTO) 52 % (42-75); PLATELET COUNT 343 x10^3/uL (130-400); RED BLOOD COUNT 4.28 x10^6/uL (4.38-5.82); RED CELL DISTRIBUTION WIDTH 17.1 % (9.4-14.8)
[2020-03-25 07:42] LABS: MD NO
[2020-03-25 07:50] LABS: ANION GAP 5 mmol/L (5-15); CALCIUM 8.1 mg/dL (8.5-10.1); CHLORIDE 105 mmol/L (98-107); CREATININE 0.78 mg/dL (0.7-1.3)
[2020-03-25] MEDS: INSULIN LISPRO 100 UNITS/ML, PEN SQ-INSULIN SCH ×4 (08:11→22:26)
[2020-03-25] MEDS ORDERED: ALBUTEROL-IPRATROPIUM MDI INH INH PRN (09:30)
[2020-03-25] MEDS ORDERED: ALBUTEROL HFA 90 MCG/SPRAY INH PRN (09:30)
[2020-03-25] MEDS: LACTOBACILLUS CHEW TABLET PO SCH ×3 (10:35→21:12)
[2020-03-25] MEDS: TIOTROPIUM BROMIDE 18 MCG/INH INH SCH (10:36)
[2020-03-25] MEDS: FUROSEMIDE 40 MG/4 ML IV SCH (10:36)
[2020-03-25] MEDS: OXYBUTYNIN CHLORIDE 5 MG TABLET PO SCH ×2 (10:36→21:12)
[2020-03-25] MEDS: APIXABAN 5 MG TABLET PO SCH ×2 (10:36→21:12)
[2020-03-25] MEDS: metFORMIN 500 MG TABLET PO SCH (10:36)
[2020-03-25] MEDS: FLUTICASONE/VILANTEROL 100-25MCG/INH INH SCH (10:36)
[2020-03-25] MEDS: SODIUM CHLORIDE FLUSH 10ML SYR IVF SCH ×2 (10:40→21:13)
[2020-03-25] MEDS ORDERED: LISINOPRIL 5 MG TABLET PO SCH (11:30)
[2020-03-25 12:12] VITALS: BP 155/77
[2020-03-25] MEDS: FERROUS SULFATE 325 MG TABLET PO SCH (12:46)
--- NOTE | 2020-03-25 16:32 | NUR ---
Posted activity sheet and informed patient and RN Addendum: 03/25/20 at 1632 by Jeff Pickard PT Amended: Links added.
[2020-03-25] MEDS: metFORMIN 850 MG TABLET PO SCH (17:25)
[2020-03-25 19:37] VITALS: BP 124/80
[2020-03-25] MEDS: ATORVASTATIN 40 MG TABLET PO SCH (21:12)
[2020-03-25 22:30] VITALS: BP 122/81
[2020-03-26 00:36] VITALS: BP 121/74
[2020-03-26] MEDS: CARVEDILOL 6.25 MG TABLET PO SCH (06:22)
[2020-03-26 06:52] VITALS: BP 88/59
[2020-03-26 06:58] VITALS: BP 110/72
[2020-03-26 08:05] LABS: ANION GAP 5 mmol/L (5-15); CALCIUM 8.2 mg/dL (8.5-10.1); CHLORIDE 105 mmol/L (98-107); CREATININE 0.78 mg/dL (0.7-1.3)
[2020-03-26] MEDS: FLUTICASONE/VILANTEROL 100-25MCG/INH INH SCH (09:00)
[2020-03-26] MEDS ORDERED: LISINOPRIL 5 MG TABLET PO SCH (09:00)
[2020-03-26] MEDS: TIOTROPIUM BROMIDE 18 MCG/INH INH SCH (09:00)
[2020-03-26] MEDS ORDERED: FUROSEMIDE 40 MG TABLET PO SCH (09:00)
[2020-03-26] MEDS: INSULIN LISPRO 100 UNITS/ML, PEN SQ-INSULIN SCH ×3 (09:28→16:02)
[2020-03-26] MEDS: LACTOBACILLUS CHEW TABLET PO SCH ×2 (09:29→16:02)
[2020-03-26] MEDS: APIXABAN 5 MG TABLET PO SCH (09:29)
[2020-03-26] MEDS: OXYBUTYNIN CHLORIDE 5 MG TABLET PO SCH (09:29)
[2020-03-26] MEDS: SODIUM CHLORIDE FLUSH 10ML SYR IVF SCH (09:31)
[2020-03-26] MEDS: metFORMIN 850 MG TABLET PO SCH (09:31)
[2020-03-26] MEDS ORDERED: METF850T PO (11:08)
[2020-03-26] MEDS ORDERED: TIOT18CA INH (11:08)
[2020-03-26] MEDS ORDERED: LISI5TAB7 PO (11:08)
[2020-03-26] MEDS ORDERED: FURO40TA6 PO (11:08)
[2020-03-26] MEDS ORDERED: GLIP5TAB10 PO (11:08)
[2020-03-26] MEDS ORDERED: ALBU18HF INH (11:08)
[2020-03-26] MEDS ORDERED: INSU100I11 SQ-INSULIN (11:08)
[2020-03-26] MEDS ORDERED: FLUT1AER INH (11:08)
[2020-03-26 12:11] VITALS: BP 106/73
[2020-03-27] MEDS ORDERED: LISINOPRIL 5 MG TABLET PO SCH (09:00)
== END 2020-03-26 17:07 | DRG 291 ==
LOC: ED 09:43 → EDIP 11:05 → INTOOBSV 11:05 → OBSVTOIN 11:05 → SUATTDRO 11:18 → 3N 13:45 → 4WST 03-23 23:06
PROVIDERS: ADMIT Hospitalist; ATTEND Hospitalist
DX: I11.0 Hypertensive heart disease with heart failure (principal); J96.21 Acute and chronic respiratory failure with hypoxia; J18.9 Pneumonia, unspecified organism; I48.20 Chronic atrial fibrillation, unspecified; J44.0 Chronic obstructive pulmonary disease with (acute) lower respiratory infection; I50.43 Acute on chronic combined systolic (congestive) and diastolic (congestive) heart failure; D50.9 Iron deficiency anemia, unspecified; E11.649 Type 2 diabetes mellitus with hypoglycemia without coma; E11.65 Type 2 diabetes mellitus with hyperglycemia; F17.200 Nicotine dependence, unspecified, uncomplicated; I48.0 Paroxysmal atrial fibrillation; B89 Unspecified parasitic disease; Z86.16 Personal history of COVID-19; R42 Dizziness and giddiness; R53.81 Other malaise; Z59.0 Homelessness; Z79.01 Long term (current) use of anticoagulants; Z91.14 Patient's other noncompliance with medication regimen
CPT/HCPCS: 36415; 71045; 80048; 80053; 81001; 82962; 83605; 83735; 83880; 84100; 84145; 84484; 85025; 85379; 87040; 93005; 94640; 96365; 96366; 96372; 96375; 99285; G0378; J0456; J0696; J1650; J1940; J7060; J1815; J7050; J7120

== ENCOUNTER 2020-05-27 12:01 | Inpatient (IN) | payer MEDICARE ==
[~2020-05-27] VITALS: Ht 185.4 cm; Wt 59.1 kg
[~2020-05-27 12:01] MED LIST changes: +ALBU18HF INH; +FLUT1AER INH; +FURO40TA6 PO; +GLIP5TAB10 PO; +LISI5TAB7 PO; +METF850T PO; +TIOT18CA INH
--- NOTE | 2020-05-27 12:05 | NUR ---
ROUGH RICE GRADER: PRIMARY RN CHRIS Peng RECEIVING REPORT FROM EMS. PT ARRIVES WITH REPORTED BUGS BY EMS, IN DECON SHOWER WITH [facility] CHRIS OCONNELL.
[2020-05-27] MEDS ORDERED: PIPERONYL BUTOXIDE/PYRETHRINS 4OZ. SHAMPOO ONE (12:14)
--- NOTE | 2020-05-27 12:36 | NUR ---
This tech performed decon no bed bugs seen or found.
--- NOTE | 2020-05-27 12:42 | NUR ---
STAFF FOUND A BEDBUG IN PATIENT'S ARMPIT HAIR DURING EKG. BEDBUG WAS COLLECTED IN URINE CUP AND IS ON ROOM COUNTER.
--- NOTE | 2020-05-27 12:51 | NUR ---
MACHINE STUFFER AUTOMATIC: HOUSEKEEPING CAME TO IDENTIFY BUG COLLECTED AT BEDSIDE, PER HOUSEKEEPING SUP/CHARGE "IT IS LICE, NOT A BED BUG, ROOM WILL BE TERMINALLY CLEANED UPDON DISCHARGE."
[2020-05-27] MEDS ORDERED: DILTIAZEM 5 MG/ML, 5ML IV ONE (13:00)
[2020-05-27] MEDS ORDERED: SODIUM CHLORIDE 0.9% 1,000ML IVBOLUS ONE ×2 (13:00→13:30)
--- NOTE | 2020-05-27 13:00 | NUR ---
md is at the bedside to assess
--- NOTE | 2020-05-27 13:40 | NUR ---
per , i am to hold diltiazem at this time
[2020-05-27] MEDS ORDERED: DILTIAZEM 5 MG/ML, 5ML ONE (13:52)
--- NOTE | 2020-05-27 13:56 | NUR ---
pt experiencing paroxysmal atrial fib.. i have been asked to administer at this time.
[2020-05-27 14:47] LABS: BASOPHILS % (AUTO) 1 % (0-1); EOSINOPHILS % (AUTO) 10 % (1-7); LYMPHOCYTES % (AUTO) 19 % (22-44); MEAN CORPUSCULAR HEMOGLOBIN 25.2 pg (27.5-34.5); MEAN CORPUSCULAR HGB CONC 31.8 g/dL (33.2-36.2); MEAN PLATELET VOLUME 9.3 fL (7.4-10.4); MONOCYTES % (AUTO) 8 % (2-9); NEUTROPHILS % (AUTO) 62 % (42-75); PLATELET COUNT 240 x10^3/uL (130-400); RED CELL DISTRIBUTION WIDTH 19.9 % (9.4-14.8)
[2020-05-27 14:52] LABS: MD NO
[2020-05-27 14:53] LABS: ALANINE AMINOTRANSFERASE 14 U/L (12-78); ALBUMIN 3.2 g/dL (3.4-5.0); ANION GAP 10 mmol/L (5-15); CALCIUM 9.5 mg/dL (8.5-10.1); CHLORIDE 97 mmol/L (98-107); CREATININE 1.18 mg/dL (0.7-1.3)
--- NOTE | 2020-05-27 14:57 | NUR ---
abram (rn) is assuming care of this pt at this time. sbar report was exchanged at the bedside.
[2020-05-27 15:03] LABS: ALKALINE PHOSPHATASE 89 U/L (45-117); BILIRUBIN,TOTAL 0.7 mg/dL (0.2-1.0)
--- NOTE | 2020-05-27 15:45 | NUR ---
HOSPITALIST WAS IN TO SEE PT.
[2020-05-27] MEDS ORDERED: DEXTROSE 4 GM TAB.CHEW PO PRN (16:00)
[2020-05-27] MEDS ORDERED: DEXTROSE 50%, 50ML SYRINGE IVPush PRN (16:00)
[2020-05-27] MEDS ORDERED: ENALAPRILAT 1.25 MG/ML, 2ML IVPush PRN (16:00)
[2020-05-27] MEDS ORDERED: ACETAMINOPHEN 325 MG TABLET PO PRN (16:00)
[2020-05-27] MEDS ORDERED: DOCUSATE 100 MG CAPSULE PO PRN (16:00)
[2020-05-27] MEDS ORDERED: GLUCAGON 1 MG IM PRN (16:00)
[2020-05-27] MEDS ORDERED: SODIUM CHLORIDE 0.9% 1,000 ML IV SCH (16:00)
[2020-05-27] MEDS ORDERED: ALBUTEROL HFA 90 MCG/SPRAY INH PRN (16:00)
[2020-05-27] MEDS ORDERED: LABETALOL 5MG/ML, 20ML IVPush PRN (16:00)
[2020-05-27] MEDS ORDERED: ONDANSETRON ODT 4 MG PO PRN (16:00)
[2020-05-27] MEDS ORDERED: ONDANSETRON 2MG/ML, 2ML IVPush PRN (16:00)
[2020-05-27] MEDS ORDERED: BISACODYL 10 MG SUPP PR PRN (16:00)
[2020-05-27] MEDS ORDERED: POLYETHYLENE GLYCOL 17 GM PACKET PO PRN (16:00)
[2020-05-27] MEDS ORDERED: DILTIAZEM 5 MG/ML, 5ML IVPush PRN (16:00)
[2020-05-27 16:23] VITALS: BP 148/88
[2020-05-27 16:28] VITALS: BP 158/77
[2020-05-27] MEDS: CARVEDILOL 6.25 MG TABLET PO SCH (17:21)
[2020-05-27] MEDS: FERROUS SULFATE 325 MG TABLET PO SCH (17:21)
[2020-05-27] MEDS: metFORMIN 850 MG TABLET PO SCH (17:21)
[2020-05-27] MEDS: INSULIN LISPRO 100 UNITS/ML, PEN SQ-INSULIN SCH ×2 (18:28→22:05)
[2020-05-27 18:42] LABS: MICROSCOPIC NOT IND
[2020-05-27] MEDS ORDERED: PERMETHRIN CRM 5%, 60GM TP ONE (19:00)
[2020-05-27 19:16] VITALS: BP_SYST 124; BP_SYST 132; BP_DIAS 72; BP_DIAS 76
[2020-05-27] MEDS: OXYBUTYNIN CHLORIDE 5 MG TABLET PO SCH (21:49)
[2020-05-27] MEDS: APIXABAN 5 MG TABLET PO SCH (21:49)
[2020-05-27] MEDS: ATORVASTATIN 40 MG TABLET PO SCH (21:49)
[2020-05-27] MEDS: SODIUM CHLORIDE FLUSH 10ML SYR IVF SCH (21:50)
[2020-05-28 01:26] VITALS: BP 140/77
[2020-05-28 05:00] LABS: BASOPHILS % (AUTO) 1 % (0-1); EOSINOPHILS % (AUTO) 16 % (1-7); LYMPHOCYTES % (AUTO) 22 % (22-44); MEAN CORPUSCULAR HEMOGLOBIN 25.2 pg (27.5-34.5); MEAN CORPUSCULAR HGB CONC 32.3 g/dL (33.2-36.2); MEAN PLATELET VOLUME 8.9 fL (7.4-10.4); MONOCYTES % (AUTO) 10 % (2-9); NEUTROPHILS % (AUTO) 52 % (42-75); PLATELET COUNT 201 x10^3/uL (130-400); RED BLOOD COUNT 5.08 x10^6/uL (4.38-5.82); RED CELL DISTRIBUTION WIDTH 19.9 % (9.4-14.8)
[2020-05-28 05:11] LABS: ALANINE AMINOTRANSFERASE 10 U/L (12-78); ALBUMIN 2.5 g/dL (3.4-5.0); ANION GAP 4 mmol/L (5-15); CALCIUM 8.6 mg/dL (8.5-10.1); CHLORIDE 101 mmol/L (98-107)
[2020-05-28 05:14] LABS: ALKALINE PHOSPHATASE 64 U/L (45-117); BILIRUBIN,TOTAL 0.3 mg/dL (0.2-1.0); TOTAL PROTEIN 5.3 g/dL (6.4-8.2)
[2020-05-28 05:42] LABS: ESTIMATED AVERAGE GLUCOSE 355 mg/dL (0-126)
[2020-05-28 05:47] LABS: MD SCAN
[2020-05-28] MEDS: CARVEDILOL 6.25 MG TABLET PO SCH ×2 (06:09→17:41)
[2020-05-28 07:41] VITALS: BP 124/79
[2020-05-28] MEDS: INSULIN LISPRO 100 UNITS/ML, PEN SQ-INSULIN SCH ×4 (08:09→21:02)
[2020-05-28] MEDS: metFORMIN 850 MG TABLET PO SCH ×2 (08:15→17:40)
[2020-05-28] MEDS: OXYBUTYNIN CHLORIDE 5 MG TABLET PO SCH ×2 (08:15→20:07)
[2020-05-28] MEDS: APIXABAN 5 MG TABLET PO SCH ×2 (08:15→20:07)
[2020-05-28] MEDS: SODIUM CHLORIDE FLUSH 10ML SYR IVF SCH ×2 (08:16→20:08)
[2020-05-28] MEDS: TIOTROPIUM BROMIDE 18 MCG/INH INH SCH (09:00)
[2020-05-28] MEDS: FLUTICASONE/VILANTEROL 100-25MCG/INH INH SCH (09:00)
[2020-05-28 14:45] VITALS: BP 116/75
[2020-05-28 17:52] VITALS: BP 126/84
[2020-05-28 19:41] VITALS: BP 133/74
[2020-05-28] MEDS: ATORVASTATIN 40 MG TABLET PO SCH (20:07)
[2020-05-28] MEDS ORDERED: INSULIN GLARGINE 100 UNITS/ML, PEN SQ-INSULIN SCH (21:00)
[2020-05-29 00:37] VITALS: BP 103/65
[2020-05-29] MEDS: CARVEDILOL 6.25 MG TABLET PO SCH ×2 (05:40→17:36)
[2020-05-29 07:20] VITALS: BP 126/74
[2020-05-29 07:44] LABS: BASOPHILS % (AUTO) 2 % (0-1); EOSINOPHILS % (AUTO) 13 % (1-7); LYMPHOCYTES % (AUTO) 21 % (22-44); MEAN CORPUSCULAR HEMOGLOBIN 25.2 pg (27.5-34.5); MEAN CORPUSCULAR HGB CONC 32.2 g/dL (33.2-36.2); MEAN PLATELET VOLUME 8.8 fL (7.4-10.4); MONOCYTES % (AUTO) 10 % (2-9); NEUTROPHILS % (AUTO) 54 % (42-75); PLATELET COUNT 197 x10^3/uL (130-400); RED BLOOD COUNT 5.22 x10^6/uL (4.38-5.82); RED CELL DISTRIBUTION WIDTH 19.8 % (9.4-14.8)
[2020-05-29 07:54] LABS: MD NO
[2020-05-29 08:01] LABS: ANION GAP 6 mmol/L (5-15); CHLORIDE 101 mmol/L (98-107)
[2020-05-29] MEDS: FLUTICASONE/VILANTEROL 100-25MCG/INH INH SCH (08:09)
[2020-05-29 08:12] LABS: ALANINE AMINOTRANSFERASE 12 U/L (12-78); BILIRUBIN,TOTAL 0.3 mg/dL (0.2-1.0); CALCIUM 8.7 mg/dL (8.5-10.1); CREATININE 0.67 mg/dL (0.7-1.3)
[2020-05-29 08:13] LABS: ALBUMIN 2.5 g/dL (3.4-5.0); ALKALINE PHOSPHATASE 66 U/L (45-117); TOTAL PROTEIN 5.7 g/dL (6.4-8.2)
[2020-05-29] MEDS: APIXABAN 5 MG TABLET PO SCH (08:28)
[2020-05-29] MEDS: OXYBUTYNIN CHLORIDE 5 MG TABLET PO SCH (08:28)
[2020-05-29] MEDS: metFORMIN 850 MG TABLET PO SCH ×2 (08:28→17:37)
[2020-05-29] MEDS: SODIUM CHLORIDE FLUSH 10ML SYR IVF SCH (08:29)
[2020-05-29] MEDS: INSULIN LISPRO 100 UNITS/ML, PEN SQ-INSULIN SCH ×3 (08:32→17:38)
[2020-05-29] MEDS: TIOTROPIUM BROMIDE 18 MCG/INH INH SCH (09:00)
[2020-05-29 13:00] VITALS: BP 101/57
[2020-05-29] MEDS ORDERED: INSU100I13 SQ-INSULIN (15:55)
[2020-05-29] MEDS ORDERED: CARV6.2512 PO (15:55)
[2020-05-29] MEDS ORDERED: ALBU18HF INH (15:55)
[2020-05-29] MEDS ORDERED: GLIP5TAB10 PO (15:55)
[2020-05-29] MEDS ORDERED: FLUT1AER INH (15:55)
[2020-05-29] MEDS ORDERED: FERR-51 PO (15:55)
[2020-05-29] MEDS ORDERED: APIX5TAB PO (15:55)
[2020-05-29] MEDS ORDERED: LISI5TAB7 PO (15:55)
[2020-05-29] MEDS ORDERED: METF850T PO (15:55)
[2020-05-29] MEDS ORDERED: TIOT18CA INH (15:55)
[2020-05-29] MEDS ORDERED: ATOR-2 PO (15:55)
[2020-05-29] MEDS ORDERED: OXYB5TAB10 PO (15:55)
[2020-05-29] MEDS: FERROUS SULFATE 325 MG TABLET PO SCH (17:36)
== END 2020-05-29 18:46 | disposition home or self-care (01) | DRG 308 ==
LOC: ED 14:09 → 5SO 15:16
PROVIDERS: ADMIT Family Medicine; ATTEND Hospitalist
DX: I48.0 Paroxysmal atrial fibrillation (principal); E43 Unspecified severe protein-calorie malnutrition; Z68.1 Body mass index [BMI] 19.9 or less, adult; I50.22 Chronic systolic (congestive) heart failure; E86.0 Dehydration; E11.65 Type 2 diabetes mellitus with hyperglycemia; E11.51 Type 2 diabetes mellitus with diabetic peripheral angiopathy without gangrene; F17.210 Nicotine dependence, cigarettes, uncomplicated; I11.0 Hypertensive heart disease with heart failure; J44.9 Chronic obstructive pulmonary disease, unspecified; I65.23 Occlusion and stenosis of bilateral carotid arteries; R62.7 Adult failure to thrive; Z59.0 Homelessness; Z86.718 Personal history of other venous thrombosis and embolism; Z89.421 Acquired absence of other right toe(s); Z91.14 Patient's other noncompliance with medication regimen; Z79.899 Other long term (current) drug therapy
CPT/HCPCS: 36415; 71045; 80053; 81003; 82962; 83036; 83735; 84100; 84443; 85025; 93005; 93880; 96374; G0378; J1815; J7030

== ENCOUNTER 2020-10-13 12:30 | Inpatient (IN) | payer MEDICARE ==
[~2020-10-13] VITALS: Ht 182.9 cm; Wt 59.2 kg
[~2020-10-13 12:30] MED LIST changes: +ASPI81TA45 PO; +BISA10SU4 PR; +BISA5TAB5 PO; +OXYC5TAB98 PO; +SENN-211 PO
--- NOTE | 2020-10-13 12:50 | NUR ---
BIB EMS AFTER FALLING OUT OF HIS CHAIR WITH + LOC. REPORTS FEELING DIZZY TODAY. HX HTN, DM2, A-FIB W/RVR, OVERACTIVE BLADDER, HYPERLIPIDEMIA, RUE DVT. EMS REPORTS PT A-FIB WITH RVR AND A BS OF 575 (OUT OF MEDS FOR 1 MONTH). PT IN BED IN GOWN WITH [employer] LEGAL INSTRUCTOR, SPO2, BP Q 30 MIN, SIDE RIALS UP X2, CALL LIGHT IN REACH. EMS STARTED 20 LEFT ARM. PT WAS TAKEN TO THE SHOWER FOR BED BUGS. PT CLEAN AND BLONGINGS PUT IN A BAG IN THE ROOM. AWATING MD TO SEE.
[2020-10-13] MEDS ORDERED: SODIUM CHLORIDE 0.9% 1,000ML IVBOLUS ONE (13:00)
[2020-10-13] MEDS ORDERED: DILTIAZEM 5 MG/ML, 5ML IVPush STA (13:27)
[2020-10-13] MEDS ORDERED: DILTIAZEM 5 MG/ML, 5ML ONE (13:48)
[2020-10-13] MEDS ORDERED: INSULIN REGULAR 100 UNITS/ML, 3ML VIAL SQ-INSULIN ONE (14:00)
--- NOTE | 2020-10-13 14:00 | NUR ---
WENT TO GIVE DILTIAZEM BUT HR 92, WILL CHECK WITH MD IF REPEAT EKG OR IF DILT STILL NEEDED
[2020-10-13] MEDS ORDERED: INSULIN SINGLE DOSE, ER ONE (14:06)
[2020-10-13 14:11] LABS: PH, VENOUS 7.339 pH (7.320-7.420)
[2020-10-13 14:22] LABS: ALANINE AMINOTRANSFERASE 10 U/L (12-78); ALBUMIN 2.9 g/dL (3.4-5.0); ANION GAP 8 mmol/L (5-15); CHLORIDE 99 mmol/L (98-107); CREATININE 1.06 mg/dL (0.7-1.3)
[2020-10-13 14:24] LABS: ALKALINE PHOSPHATASE 93 U/L (45-117); BILIRUBIN,TOTAL 0.5 mg/dL (0.2-1.0); TOTAL PROTEIN 6.6 g/dL (6.4-8.2)
[2020-10-13 14:28] LABS: BASOPHILS % (AUTO) 1 % (0-1); EOSINOPHILS % (AUTO) 17 % (1-7); LYMPHOCYTES % (AUTO) 8 % (22-44); MEAN CORPUSCULAR HEMOGLOBIN 26.5 pg (27.5-34.5); MEAN CORPUSCULAR HGB CONC 31.8 g/dL (33.2-36.2); MEAN PLATELET VOLUME 7.8 fL (7.4-10.4); MONOCYTES % (AUTO) 13 % (2-9); NEUTROPHILS % (AUTO) 60 % (42-75); PLATELET COUNT 311 x10^3/uL (130-400); RED BLOOD COUNT 5.35 x10^6/uL (4.38-5.82); RED CELL DISTRIBUTION WIDTH 18.3 % (9.4-14.8)
[2020-10-13] MEDS ORDERED: DILTIAZEM 125 MG in SODIUM CHLORIDE 0.9% 100 ML IV SCH ×2 (14:30→19:30)
--- NOTE | 2020-10-13 14:35 | NUR ---
REQUESTED DILT GTT. PATIENT RATE BACK UP TO 150 NO CHEST PAIN. AOX4
[2020-10-13 15:01] LABS: ACETONE, SERUM Large (80mg/dL) (Negative)
[2020-10-13 15:03] LABS: TROPONIN I < 0.015 ng/mL (0.000-0.045)
--- NOTE | 2020-10-13 16:40 | NUR ---
let md know that patient hr coming down to 90's. internal medicine doctor here and assessing. HR between 90-125. no chest pain.
[2020-10-13] MEDS ORDERED: NITROGLYCERIN 0.4 MG BOTTLE (25 TABS) SL PRN (17:00)
[2020-10-13] MEDS ORDERED: OXYcodone IR 5MG TABLET PO PRN (17:00)
[2020-10-13] MEDS ORDERED: ENALAPRILAT 1.25 MG/ML, 2ML IVPush PRN (17:00)
[2020-10-13] MEDS ORDERED: ONDANSETRON 2MG/ML, 2ML IVPush PRN (17:00)
[2020-10-13] MEDS ORDERED: MELATONIN 5 MG TABLET PO PRN (17:00)
[2020-10-13] MEDS: INSULIN LISPRO 100 UNITS/ML, PEN SQ-INSULIN SCH ×2 (17:00→22:20)
[2020-10-13] MEDS ORDERED: ALBUTEROL HFA 90 MCG/SPRAY INH PRN (17:00)
[2020-10-13] MEDS ORDERED: ACETAMINOPHEN 325 MG TABLET PO PRN (17:00)
--- NOTE | 2020-10-13 17:03 | NUR ---
report to anu genao sbar.
--- NOTE | 2020-10-13 17:58 | NUR ---
patient left for admission, on monitor, vss
[2020-10-13] MEDS ORDERED: PIPERONYL BUTOXIDE/PYRETHRINS 4OZ. SHAMPOO ONE (18:12)
[2020-10-13 20:10] VITALS: BP 116/82
[2020-10-13] MEDS: APIXABAN 5 MG TABLET PO SCH (20:12)
[2020-10-13] MEDS: FERROUS SULFATE 325 MG TABLET PO SCH (20:12)
[2020-10-13] MEDS: CARVEDILOL 12.5 MG TABLET PO SCH (20:12)
[2020-10-13] MEDS: ATORVASTATIN 80 MG TABLET PO SCH (20:12)
[2020-10-13] MEDS: FUROSEMIDE 40 MG TABLET PO SCH (21:53)
[2020-10-13] MEDS: INSULIN GLARGINE 100 UNITS/ML, PEN SQ-INSULIN SCH (22:20)
[2020-10-14] VITALS (7 sets, daily range): BP systolic 88–118; BP diastolic 55–77
[2020-10-14 05:47] LABS: CHLORIDE 99 mmol/L (98-107)
[2020-10-14 05:57] LABS: ALANINE AMINOTRANSFERASE 9 U/L (12-78); ALBUMIN 2.1 g/dL (3.4-5.0); ALKALINE PHOSPHATASE 70 U/L (45-117); ANION GAP 3 mmol/L (5-15); BILIRUBIN,TOTAL 0.3 mg/dL (0.2-1.0); CALCIUM 8.5 mg/dL (8.5-10.1); CREATININE 0.71 mg/dL (0.7-1.3); TOTAL PROTEIN 5.6 g/dL (6.4-8.2)
[2020-10-14] MEDS: ASPIRIN 81 MG TABLET EC PO SCH (05:59)
[2020-10-14] MEDS: CARVEDILOL 12.5 MG TABLET PO SCH (05:59)
[2020-10-14] MEDS ORDERED: LISINOPRIL 5 MG TABLET PO SCH (09:00)
[2020-10-14] MEDS: APIXABAN 5 MG TABLET PO SCH ×2 (09:04→21:06)
[2020-10-14] MEDS: FUROSEMIDE 40 MG TABLET PO SCH ×2 (09:04→17:17)
[2020-10-14] MEDS: TIOTROPIUM BROMIDE 18 MCG/INH INH SCH (14:04)
[2020-10-14] MEDS: FLUTICASONE/VILANTEROL 100-25MCG/INH INH SCH (14:04)
[2020-10-14] MEDS: INSULIN LISPRO 100 UNITS/ML, PEN SQ-INSULIN SCH ×3 (14:11→21:08)
[2020-10-14] MEDS: CARVEDILOL 6.25 MG TABLET PO SCH (17:17)
[2020-10-14] MEDS: metFORMIN XR 500 MG TAB.ER.24H PO SCH (21:05)
[2020-10-14] MEDS: ATORVASTATIN 80 MG TABLET PO SCH (21:06)
[2020-10-14] MEDS: INSULIN GLARGINE 100 UNITS/ML, PEN SQ-INSULIN SCH (21:08)
[2020-10-15 01:04] VITALS: BP 112/74
[2020-10-15 05:20] VITALS: BP 101/66
[2020-10-15] MEDS: ASPIRIN 81 MG TABLET EC PO SCH (05:22)
[2020-10-15] MEDS: CARVEDILOL 6.25 MG TABLET PO SCH ×2 (05:22→17:10)
[2020-10-15 08:14] LABS: BASOPHILS % (AUTO) 1 % (0-1); EOSINOPHILS % (AUTO) 24 % (1-7); LYMPHOCYTES % (AUTO) 17 % (22-44); MEAN CORPUSCULAR HEMOGLOBIN 26.5 pg (27.5-34.5); MEAN CORPUSCULAR HGB CONC 32.2 g/dL (33.2-36.2); MEAN PLATELET VOLUME 7.5 fL (7.4-10.4); MONOCYTES % (AUTO) 13 % (2-9); NEUTROPHILS % (AUTO) 45 % (42-75); PLATELET COUNT 293 x10^3/uL (130-400); RED BLOOD COUNT 4.22 x10^6/uL (4.38-5.82); RED CELL DISTRIBUTION WIDTH 18.2 % (9.4-14.8)
[2020-10-15 08:19] VITALS: BP 118/82
[2020-10-15] MEDS: APIXABAN 5 MG TABLET PO SCH ×2 (08:20→20:18)
[2020-10-15] MEDS: FUROSEMIDE 40 MG TABLET PO SCH ×2 (08:20→17:10)
[2020-10-15] MEDS: TIOTROPIUM BROMIDE 18 MCG/INH INH SCH (08:21)
[2020-10-15] MEDS: metFORMIN XR 500 MG TAB.ER.24H PO SCH ×2 (08:21→20:18)
[2020-10-15] MEDS: FLUTICASONE/VILANTEROL 100-25MCG/INH INH SCH (08:21)
[2020-10-15] MEDS: INSULIN LISPRO 100 UNITS/ML, PEN SQ-INSULIN SCH ×4 (08:28→20:19)
[2020-10-15 08:31] LABS: ANION GAP 6 mmol/L (5-15); CALCIUM 8.3 mg/dL (8.5-10.1); CHLORIDE 97 mmol/L (98-107)
[2020-10-15 08:35] LABS: ALANINE AMINOTRANSFERASE 7 U/L (12-78); ALKALINE PHOSPHATASE 61 U/L (45-117); BILIRUBIN,TOTAL 0.2 mg/dL (0.2-1.0); CREATININE 0.77 mg/dL (0.7-1.3); TOTAL PROTEIN 5.2 g/dL (6.4-8.2)
[2020-10-15 12:08] VITALS: BP 90/58
[2020-10-15] MEDS: FERROUS SULFATE 325 MG TABLET PO SCH (17:09)
[2020-10-15 17:10] VITALS: BP 124/81
[2020-10-15 20:00] VITALS: BP 126/82
[2020-10-15] MEDS: ATORVASTATIN 80 MG TABLET PO SCH (20:18)
[2020-10-15] MEDS ORDERED: INSULIN GLARGINE 100 UNITS/ML, PEN SQ-INSULIN SCH (21:00)
[2020-10-16 01:54] VITALS: BP 117/79
[2020-10-16] MEDS: ASPIRIN 81 MG TABLET EC PO SCH (05:38)
[2020-10-16] MEDS: CARVEDILOL 6.25 MG TABLET PO SCH (05:38)
[2020-10-16 07:30] VITALS: BP 100/66
[2020-10-16] MEDS: metFORMIN XR 500 MG TAB.ER.24H PO SCH (08:42)
[2020-10-16] MEDS: APIXABAN 5 MG TABLET PO SCH (08:43)
[2020-10-16] MEDS: FUROSEMIDE 40 MG TABLET PO SCH (08:43)
[2020-10-16] MEDS: INSULIN LISPRO 100 UNITS/ML, PEN SQ-INSULIN SCH ×2 (08:44→11:00)
[2020-10-16] MEDS: FLUTICASONE/VILANTEROL 100-25MCG/INH INH SCH (08:45)
[2020-10-16] MEDS: TIOTROPIUM BROMIDE 18 MCG/INH INH SCH (08:45)
[2020-10-16 10:20] LABS: BASOPHILS % (AUTO) 1 % (0-1); EOSINOPHILS % (AUTO) 18 % (1-7); LYMPHOCYTES % (AUTO) 18 % (22-44); MEAN CORPUSCULAR HEMOGLOBIN 26.4 pg (27.5-34.5); MEAN PLATELET VOLUME 7.8 fL (7.4-10.4); MONOCYTES % (AUTO) 13 % (2-9); NEUTROPHILS % (AUTO) 51 % (42-75); PLATELET COUNT 287 x10^3/uL (130-400); RED BLOOD COUNT 4.54 x10^6/uL (4.38-5.82); RED CELL DISTRIBUTION WIDTH 17.8 % (9.4-14.8)
[2020-10-16 10:34] LABS: ALANINE AMINOTRANSFERASE 9 U/L (12-78); ALBUMIN 2.1 g/dL (3.4-5.0); ANION GAP 5 mmol/L (5-15); CALCIUM 9.2 mg/dL (8.5-10.1); CHLORIDE 97 mmol/L (98-107); CREATININE 0.88 mg/dL (0.7-1.3)
[2020-10-16 10:38] LABS: ALKALINE PHOSPHATASE 60 U/L (45-117); BILIRUBIN,TOTAL 0.3 mg/dL (0.2-1.0); TOTAL PROTEIN 5.6 g/dL (6.4-8.2)
[2020-10-16] MEDS ORDERED: CARV6.2512 PO (13:07)
[2020-10-16] MEDS ORDERED: FLUT1AER INH (13:07)
[2020-10-16] MEDS ORDERED: GLIP5TAB10 PO (13:07)
[2020-10-16] MEDS ORDERED: METF-754 PO (13:07)
[2020-10-16] MEDS ORDERED: APIX5TAB PO (13:07)
[2020-10-16] MEDS ORDERED: ASPI81TA45 PO (13:07)
[2020-10-16] MEDS ORDERED: FERR-51 PO (13:07)
[2020-10-16] MEDS ORDERED: TIOT18CA INH (13:07)
[2020-10-16] MEDS ORDERED: ATOR-2 PO (13:07)
[2020-10-16] MEDS ORDERED: ALBU18HF INH (13:07)
[2020-10-16] MEDS ORDERED: INSU100I13 SQ-INSULIN (13:07)
[2020-10-16 13:29] VITALS: BP 101/61
[2020-10-16] MEDS ORDERED: metFORMIN XR 500 MG TAB.ER.24H PO SCH (17:00)
== END 2020-10-16 15:45 | disposition home or self-care (01) | DRG 309 ==
LOC: ED 14:55 → EDIP 16:01 → 5SO 17:27 → EDIP 18:22 → 5SO 18:49
PROVIDERS: ADMIT Internal Medicine; ATTEND Hospitalist
DX: I48.91 Unspecified atrial fibrillation (principal); E44.0 Moderate protein-calorie malnutrition; I50.22 Chronic systolic (congestive) heart failure; Z68.1 Body mass index [BMI] 19.9 or less, adult; I48.92 Unspecified atrial flutter; E11.65 Type 2 diabetes mellitus with hyperglycemia; G89.29 Other chronic pain; E86.0 Dehydration; J44.9 Chronic obstructive pulmonary disease, unspecified; Z20.822 Contact with and (suspected) exposure to COVID-19; S09.90XA Unspecified injury of head, initial encounter; I11.0 Hypertensive heart disease with heart failure; E78.5 Hyperlipidemia, unspecified; I95.9 Hypotension, unspecified; R55 Syncope and collapse; W18.39XA Other fall on same level, initial encounter; E11.51 Type 2 diabetes mellitus with diabetic peripheral angiopathy without gangrene; Z79.01 Long term (current) use of anticoagulants; Z91.14 Patient's other noncompliance with medication regimen; Z72.0 Tobacco use; Z59.0 Homelessness; Z79.4 Long term (current) use of insulin; Y93.89 Activity, other specified; Y92.89 Other specified places as the place of occurrence of the external cause; Y99.8 Other external cause status
CPT/HCPCS: 36415; 70450; 71045; 80053; 82010; 82803; 82962; 83036; 83735; 83880; 84100; 84484; 85025; 93005; 99291; G0378; U0005; J1815; J7030; U0003